=== PATIENT | female | born 1985 | race Native Hawaiian/Other Pacific Islander ===

== ENCOUNTER 2024-03-09 23:23 | Inpatient (IN) | payer OTHER, SELFPAY ==
[2024-03-09 23:43] VITALS: BP 140/120; BP 150/100; PULSE 118; PULSE 120; RESP 20; TEMP 36.9; O2SAT 97; O2SAT 99; BMI 18.6
[2024-03-09 23:48] VITALS: BP 171/118
--- NOTE | 2024-03-09 23:50 | ECG_ITS ---
Test Reason : MED CLEARANCE Blood Pressure : / mmHG Vent. Rate : 109 BPM Atrial Rate : 109 BPM P-R Int : 184 ms QRS Dur : 084 ms QT Int : 348 ms P-R-T Axes : 066 089 040 degrees QTc Int : 468 ms Sinus tachycardia Otherwise normal ECG No previous ECGs available Referred By: Zainab Salguero Electronically Signed By:JORGE JIMENEZ
--- NOTE | 2024-03-10 00:06 | ED_ITS ---
HPI - Psych General Chief Complaint: Psychiatric Symptoms Stated Complaint: ETOH, SI section 12, unknown substance per family Time Seen by Provider: 03/09/24 23:51 Source: patient and EMS Mode of arrival: EMS Limitations: other (not forthcoming with information) History of Present Illness ED Provider: LITO HPI Narrative: 39 yo female with PMH of anxiety, depression, ETOH abuse who states she has been dealing with some family issues and was doing okay she had not drank for 7 days then went home and upstairs she found a 2 bottles of alcohol just out in the open. She drank them and then did some THC gummies and cocaine. She denies any SI attempt. In the heat of the moment she made SI statements to though she will not disclose them to me. She doesn't want to go home and states she will just sleep in the bushes. She reports remote hx of SI attempts when she was much younger. She states she does not want to kill herself. She is here on S12. MD complaint: feels depressed, anxiety and alcohol abuse Onset (ago): hour(s) Duration: intermittent History of same: Yes Relieving factors: none Exacerbating factors: alcohol and other Context: recent alcohol abuse and significant life stressor Associated psychiatric symptoms: depression Associated symptoms: denies other symptoms Treatments prior to arrival: placed on mental health hold Related Data Allergies Allergy/AdvReac Type Severity Reaction Status Date / Time Unable to Assess Allergy Verified 03/09/24 23:46 Review of Systems 2 Review of Systems: Constitutional : No Fever, No Chills ENT/Mouth : No Ear Pain, No Nasal Congestion, No sore throat Eyes: No Eye Pain, No Swelling, No Redness Cardiovascular : No Chest Pain, No SOB Respiratory : No Cough, No Sputum, No Dyspnea Gastrointestinal : No Nausea, No Vomiting, No Diarrhea, No Hematochezia, No Melena Genitourinary : No Dysuria, No Urinary Frequency, No Hematuria Musculoskeletal : No Myalgias Skin : No Skin Lesions, No rash Neuro : No Weakness, No Numbness, No Paresthesias, No Dizziness, No Headache Psych : positive Anxiety, positive Depression, no SI/HI Heme/Lymph: No Lymphadenopathy Endocrine : No Polyuria, No Polydipsia All other systems reviewed and are negative [facility] Past Medical History Attestation statement: The following information was validated with the patient. Source: old records reviewed Medical History Alcohol use disorder Anxiety and depression Social History Social History Substance Use Type: Crack/Cocaine and Marijuana Do you have a plan to hurt others: No Plan Physical Exam 2 Vital Signs: Vital Signs: Last Vital Signs Temp 98.4 F 03/09/24 23:43 Pulse 118 H 03/10/24 01:00 Resp 20 03/09/24 23:43 BP 171/118 H 03/09/24 23:48 Pulse Ox 97 03/09/24 23:43 O2 Del Method Room Air 03/09/24 23:43 BMI result Body Mass Index 18.6 Appearance: Alert. Oriented X3. No acute distress. Eyes: Pupils equal, round and reactive to light. ENT: Pharynx normal. Neck: Normal inspection. Neck supple. CVS:tachycardic heart rate and rhythm. Pulses normal. Respiratory: No respiratory distress. Breath sounds normal. Abdomen: atraumatic Skin: Skin warm and dry. Normal skin color. Extremities: No lower extremity edema. Neuro: Oriented X 3. No motor deficit. No sensory deficit. CN2-12 intact Medical Decision Making Medical Decision Making MDM Narrative: 39 yo female with PMH of anxiety, depression, ETOH abuse who complains of depressoin and anxiety relapsed tonight after abstinence from ETOH - she denies SI/HI. She states she does not want to be here but is also not very forthcoming with information and states when she leaves she will sleep in some bushes. I am going to keep her here and refer her to CARE team Differential Diagnosis Differential Diagnoses: The differential diagnosis associated with the presentation includes ETOH use, depression Admission/Observation Consideration of admission/observation: Escalation of care including admission/observation considered physician observation started at 119am pending CARE team Lab Data MDM Lab Attestation statement: I reviewed the patient's lab results. 03/10/24 00:08 03/10/24 00:08 Labs: Lab Results 03/10/24 Range/Units 00:08 WBC 4.0 L (4.8-10.8) X10*3/uL RBC 3.56 L (4.20-5.50) X10*6/uL Hgb 12.8 (12.0-16.0) g/dl Hct 36.6 L (37.0-47.0) % MCV 102.8 H (80.0-98.0) fL MCH 36.0 H (27.0-33.0) pg MCHC 35.0 (31.0-35.0) g/dl RDW 11.7 (11.0-16.0) % Plt Count 309 (160-400) X10*3/uL MPV 8.5 L (9.4-12.3) fL Immature Gran % (Auto) 0.2 (0.0-0.4) % Neut % (Auto) 50.2 (45-73) % Lymph % (Auto) 35.9 (20-40) % [place] % (Auto) 9.7 (2-11) % Eos % (Auto) 3.5 (0-4) % Baso % (Auto) 0.5 (0-2) % Lymph # (Auto) 1.5 (1.2-4.9) X10*3/uL [place] # (Auto) 0.4 (0.1-1.2) X10*3/uL Eos # (Auto) 0.1 (0.0-0.4) X10*3/uL Baso # (Auto) 0.0 (0.0-0.2) X10*3/uL Abs Immat Gran (auto) 0.01 (0.00-0.03) X10*3/uL Absolute Neuts (auto) 2.0 (2.0-8.3) x10*3/uL Absolute Nucleated RBC 0.000 (0.0-0.012) X10*3/uL Nucleated RBC % (auto) 0.0 (0.0-0.2) /100WBC Sodium 145 (135-145) mmol/L Potassium 3.0 L (3.3-5.1) mmol/L Chloride 111 H (96-108) mmol/L Carbon Dioxide 27 (22-29) mmol/L Anion Gap 10 L (12-20) BUN 5 L (9-16) mg/dL Creatinine 0.77 (0.5-1.4) mg/dL Estim Creat Clear Calc 73.7 Estimated GFR > 60 Random Glucose 99 (60-115) mg/dL Calcium 9.6 (8.4-10.2) mg/dL Magnesium 2.4 (1.6-2.6) mg/dL Total Bilirubin 0.4 (0.0-1.0) mg/dL Direct Bilirubin 0.2 (0.0-0.5) mg/dL AST 74 H (5-31) U/L ALT 48 H (0-31) U/L Alkaline Phosphatase 90 (39-117) U/L Total Protein 7.0 (6.5-8.0) g/dL Albumin 4.4 (3.5-5.0) g/dL Lipase 36 (8-78) U/L Salicylates < 5.0 L (15-30) mg/dL Acetaminophen < 3 (<30) mcg/mL Ethyl Alcohol 210 mg/dL Independent Interpretation I performed an independent interpretation of an: EKG Interpretation: Rate: 109 Rhythm: sinus tachycardia [place]: normal Normal P waves. Normal ZENAIDA. Normal QRS complex. ST T wave : normal no DOROTHY qTC: 468 prior studies: no acute ischemia The study has been interpreted contemporaneously by me. . Independent Historian Clinical information obtained from an independent historian. History obtained from or confirmed by: EMS Social Determinants Patient?s care significantly limited by Social Determinants of Health including: Problems related to primary support group Discharge Plan Discharge Clinical Impression: Acute anxiety, Alcohol abuse Patient Disposition: Still a Patient Interventions: [place]-Suicide Risk Severity Scale Last Done: 03/10/24 01:00
[2024-03-10 00:15] LABS: MANUAL DIFF FLAG NO
[2024-03-10 00:17] LABS: Basophils Percent Auto 0.5 % (0-2); Eosinophils Absolute Auto 0.1 X10*3/uL (0.0-0.4); Eosinophils Percent Auto 3.5 % (0-4); Hematocrit 36.6 % (37.0-47.0); Hemoglobin 12.8 g/dl (12.0-16.0); Imm Gran Abs Auto 0.01 X10*3/uL (0.00-0.03); Imm Gran Pct Auto 0.2 % (0.0-0.4); Lymphocytes Absolute Auto 1.5 X10*3/uL (1.2-4.9); Lymphocytes Percent Auto 35.9 % (20-40); Mean Corpuscular Volume 102.8 fL (80.0-98.0); Mean Platelet Volume 8.5 fL (9.4-12.3); Monocytes Absolute Auto 0.4 X10*3/uL (0.1-1.2); Monocytes Percent Auto 9.7 % (2-11); Neutrophils Percent Auto 50.2 % (45-73); Platelet Count 309 X10*3/uL (160-400); Red Blood Count 3.56 X10*6/uL (4.20-5.50); Red Cell Distribution Width 11.7 % (11.0-16.0)
[2024-03-10 00:55] LABS: Acetaminophen LAB < 3 mcg/mL (<30); Alanine Aminotransferase 48 U/L (0-31); Albumin Level 4.4 g/dL (3.5-5.0); Alkaline Phosphatase 90 U/L (39-117); Anion Gap 10 (12-20); Aspartate Amino Transferase 74 U/L (5-31); Bilirubin Direct 0.2 mg/dL (0.0-0.5); Bilirubin Total 0.4 mg/dL (0.0-1.0); Blood Urea Nitrogen 5 mg/dL (9-16); Calcium 9.6 mg/dL (8.4-10.2); Carbon Dioxide 27 mmol/L (22-29); Chloride 111 mmol/L (96-108); Creatinine Clr Calc Pharmacy 73.7; Estimated Glomerular Filt Rate > 60; Ethanol 210 mg/dL; Glucose Random 99 mg/dL (60-115); Lipase 36 U/L (8-78); Magnesium 2.4 mg/dL (1.6-2.6); Salicylate < 5.0 mg/dL (15-30); Sodium 145 mmol/L (135-145)
[2024-03-10 01:00] VITALS: PULSE 118
--- NOTE | 2024-03-10 01:08 | PC.NURSE ---
pt comes via ems from home. Family reports pt made si statements. ETOH on board. PT refusing to answer assessment questions initially, very upset and agitated. Does not want family to visit or get any information. Later endorsed cocaine and mairjuana use. States she has been sober for 6 days after being in a program. She returned home to find her room cleaned by family, and alcohol in her room. She made statements out of anger she reports. SOLOMON 5
[2024-03-10] MEDS: LORazepam 1 MG TABLET 2 MG PO ×3 (01:18→10:15)
[2024-03-10] MEDS: Potassium Chloride Packet 20 MEQ PACKET 40 MEQ PO (01:18)
[2024-03-10 01:49] LABS: TSH reflex Free T4 1.43 uIU/mL (0.32-4.0)
[2024-03-10 06:45] VITALS: BP 119/80; PULSE 77; RESP 16; TEMP 36.7; O2SAT 100
--- NOTE | 2024-03-10 07:13 | PC.NURSE ---
Assumed care of patient at 0645. At this time the patient is resting quietly in their bed. No signs of distress observed.
[2024-03-10] MEDS: Acetaminophen 325 MG TABLET 975 MG PO (09:16)
[2024-03-10 10:03] LABS: Alanine Aminotransferase 76 U/L (0-31); Albumin Level 4.6 g/dL (3.5-5.0); Alkaline Phosphatase 103 U/L (39-117); Aspartate Amino Transferase 123 U/L (5-31); Bilirubin Total 0.3 mg/dL (0.0-1.0); Blood Urea Nitrogen 10 mg/dL (9-16); Calcium 9.7 mg/dL (8.4-10.2); Estimated Glomerular Filt Rate > 60; Glucose Random 77 mg/dL (60-115); Total Protein 7.5 g/dL (6.5-8.0)
[2024-03-10 10:20] LABS: Potassium 4.1 mmol/L (3.3-5.1)
[2024-03-10 10:21] LABS: Anion Gap 13 (12-20); Carbon Dioxide 27 mmol/L (22-29); Chloride 107 mmol/L (96-108); Sodium 143 mmol/L (135-145)
--- NOTE | 2024-03-10 10:47 | MHC.CARE ---
Pt was seen by CARE team, she is agreeable to inpatient level of care, section 12 completed and placed in chart.
--- NOTE | 2024-03-10 10:56 | PHA.MEDREC ---
Addendum entered by Elina Encinas RP 03/10/24 11:49: Reviewed by [facility] Original Note: Pharmacy Consult ? Medication Reconciliation Pharmacy has reviewed the medication reconciliation done by nursing.
[2024-03-10 12:19] LABS: UPreg QC Valid YES; Urine Pregnancy NEGATIVE (NEGATIVE)
[2024-03-10 12:20] LABS: Appearance Urine Clear; Color Urine Yellow; Glucose Urine UA Negative (Negative); Leukocyte Esterase Urine Negative (Negative); Nitrite Urine Negative (Negative); PH 6.5 (5.0-9.0); Specific Gravity - Urine <= 1.005 (1.005-1.025); Urine Blood Negative (Negative); Urine Ketones Negative (Negative); Urine Protein Negative (Neg-Trace)
[2024-03-10 12:22] LABS: Amphetamine Screen Urine Not Detected (Not Detect); Barbiturates, Urine Not Detected (Not Detect); Benzodiazepines Screen Urine Not Detected (Not Detect); Buprenorphine Scr Not Detected (Not Detect); Cannabinoid Screen Urine POSITIVE (Not Detect); Cocaine Screen Urine POSITIVE (Not Detect); Fentanyl, urine Not Detected (Not Detect); Methadone Screen, Urine Not Detected (Not Detect); Opiate Screen Urine Not Detected (Not Detect); Oxycodone Screen Urine Not Detected (Not Detect); Phencyclidine Screen Urine Not Detected (Not Detect)
[2024-03-10 15:36] VITALS: BMI 22.8
--- NOTE | 2024-03-10 15:44 | PC.NURSE ---
Pt refused flu vaccine at this time
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
--- NOTE | 2024-03-10 16:35 | PC.NURSE ---
Pt did not sign legal paperwork for family. Pt only wants visits and calls from Stanislaw Jimenez.
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
[2024-03-10 20:00] VITALS: BP 136/87; PULSE 81; RESP 16; TEMP 36.3; O2SAT 100
[2024-03-10] MEDS: hydrOXYzine HCL 25 MG TABLET PO (21:11)
[2024-03-10] MEDS: LORazepam 1 MG TABLET PO ×2 (21:11)
[2024-03-10] MEDS: QUEtiapine Fumarate 50 MG TABLET PO (21:12)
[2024-03-10] MEDS: traZODone HCL 50 MG TABLET PO (21:12)
[2024-03-11 07:41] VITALS: BP 134/84; PULSE 82; RESP 18; TEMP 36.4; O2SAT 100
[2024-03-11] MEDS: Nicotine 21 MG PATCH.TD24 TRANSDERMA (08:01)
[2024-03-11] MEDS: Folic Acid 1 MG TABLET PO (08:02)
[2024-03-11] MEDS: LORazepam 1 MG TABLET PO ×3 (08:02→20:06)
[2024-03-11] MEDS: Thiamine HCL 100 MG TABLET PO (08:03)
--- NOTE | 2024-03-11 09:02 | HO.PSYCHPN ---
Subjective Subjective Date of Service: 03/11/24 Reason For Visit: SI Subjective Notes: Conditional Voluntary Interim History: Reviewed with Dr. Atkins. Keeping to self. In bed most of shift. Guarded. Continued on CIWA. Patient reports feeling depressed; she reports suicidal ideation with no plan. Patient stated, everything in my life is changing. I have a problem that everyone is now aware of and now I am here . Patient reports she is having an affair but no one knows; patient stated, I am sure my and I are going to go through a divorce at some point . Patient denies HI/VH/AH. Start: Vraylar 3mg PO daily Medication Compliance: Yes Side effects from medications: No Attending Groups: No Review of Systems Constitutional: Reports as per HPI Eyes: Reports as per HPI Reports as per HPI Cardiovascular: Reports as per HPI Respiratory: Reports as per HPI Gastrointestinal: Reports as per HPI Musculoskeletal: Reports as per HPI Skin/Breast: Reports as per HPI Reports as per HPI Psychiatric: Reports as per HPI Endocrine: Reports as per HPI Hematologic/Lymphatic: Reports as per HPI Allergic/Immunologic: Reports as per HPI Mental Status Exam Mental Status Exam Narrative: Pt is alert and oriented; behavior is cooperative and calm; dressed in hospital attire; mood is described as depressed ; eye contact appropriate; Speech is normal rate, volume and not pressured; circumstantial, some paranoia; denies HI/VH/AH. pt reports suicidal ideation with no plan. Diagnostics Vital Signs (24Hr): Vital Signs - 24 hr 03/10/24 20:00 03/11/24 07:41 Temperature 97.3 F 97.6 F Pulse Rate 81 82 Respiratory Rate 16 18 Blood Pressure 136/87 134/84 Pulse Oximetry 100 100 Oxygen Delivery Method Room Air Room Air BMI result Body Mass Index 22.8 Labs 03/11/24 09:09 03/11/24 09:09 Labs: Laboratory Results - last 48 hr 03/10/24 03/10/24 03/10/24 00:08 09:40 12:03 WBC 4.0 L RBC 3.56 L Hgb 12.8 Hct 36.6 L MCV 102.8 H MCH 36.0 H MCHC 35.0 RDW 11.7 Plt Count 309 MPV 8.5 L Immature Gran % (Auto) 0.2 Neut % (Auto) 50.2 Lymph % (Auto) 35.9 [place] % (Auto) 9.7 Eos % (Auto) 3.5 Baso % (Auto) 0.5 Lymph # (Auto) 1.5 [place] # (Auto) 0.4 Eos # (Auto) 0.1 Baso # (Auto) 0.0 Abs Immat Gran (auto) 0.01 Absolute Neuts (auto) 2.0 Absolute Nucleated RBC 0.000 Nucleated RBC % (auto) 0.0 Sodium 145 143 Potassium 3.0 L 4.1 D Chloride 111 H 107 Carbon Dioxide 27 27 Anion Gap 10 L 13 BUN 5 L 10 Creatinine 0.77 0.86 Estim Creat Clear Calc 73.7 66.0 Estimated GFR > 60 > 60 Random Glucose 99 77 Calcium 9.6 9.7 Magnesium 2.4 Total Bilirubin 0.4 0.3 Direct Bilirubin 0.2 AST 74 H 123 H ALT 48 H 76 H Alkaline Phosphatase 90 103 Total Protein 7.0 7.5 Albumin 4.4 4.6 Lipase 36 TSH 1.43 Urine Color Urine Appearance Urine pH Ur Specific [place] Urine Protein Urine Glucose (UA) Urine Ketones Urine Blood Urine Nitrite Ur Leukocyte Esterase Urine Test NEGATIVE Salicylates < 5.0 L Urine Opiates Screen Not Detected Ur Buprenorphine Scrn Not Detected Ur Oxycodone Screen Not Detected Urine Methadone Screen Not Detected Urine Fentanyl Screen Not Detected Acetaminophen < 3 Ur Barbiturates Screen Not Detected Ur Phencyclidine Scrn Not Detected Ur Amphetamines Screen Not Detected U Benzodiazepines Scrn Not Detected Urine Cocaine Screen POSITIVE H U Marijuana (THC) Screen POSITIVE H Ethyl Alcohol 210 03/10/24 12:08 WBC RBC Hgb Hct MCV MCH MCHC RDW Plt Count MPV Immature Gran % (Auto) Neut % (Auto) Lymph % (Auto) [place] % (Auto) Eos % (Auto) Baso % (Auto) Lymph # (Auto) [place] # (Auto) Eos # (Auto) Baso # (Auto) Abs Immat Gran (auto) Absolute Neuts (auto) Absolute Nucleated RBC Nucleated RBC % (auto) Sodium Potassium Chloride Carbon Dioxide Anion Gap BUN Creatinine Estim Creat Clear Calc Estimated GFR Random Glucose Calcium Magnesium Total Bilirubin Direct Bilirubin AST ALT Alkaline Phosphatase Total Protein Albumin Lipase TSH Urine Color Yellow Urine Appearance Clear Urine pH 6.5 Ur Specific [place] <= 1.005 Urine Protein Negative Urine Glucose (UA) Negative Urine Ketones Negative Urine Blood Negative Urine Nitrite Negative Ur Leukocyte Esterase Negative Urine Test Salicylates Urine Opiates Screen Ur Buprenorphine Scrn Ur Oxycodone Screen Urine Methadone Screen Urine Fentanyl Screen Acetaminophen Ur Barbiturates Screen Ur Phencyclidine Scrn Ur Amphetamines Screen U Benzodiazepines Scrn Urine Cocaine Screen U Marijuana (THC) Screen Ethyl Alcohol Medications Medications Current Medications Acetaminophen (Acetaminophen 325 Mg Tablet) 650 mg PO Q6H PRN PRN Reason: Headache/Pain Mild Scale (1-3) Al Hydroxide/Mg Hydroxide (Magnesium Hydrox/Alum Hydrox 30 Ml Oral.Susp) 30 ml PO Q6H PRN PRN Reason: Heartburn/Nausea Folic Acid (Folic Acid 1 Mg Tablet) 1 mg PO DAILY [facility] Last Admin: 03/11/24 08:02 Dose: 1 mg Hydroxyzine HCl (Hydroxyzine Hcl 25 Mg Tablet) 25 mg PO Q6H PRN PRN Reason: Anxiety Last Admin: 03/10/24 21:11 Dose: 25 mg Lorazepam (Lorazepam 1 Mg Tablet) 1 mg PO Q4H PRN PRN Reason: CIWA 6-12 Last Admin: 03/10/24 21:11 Dose: 1 mg Lorazepam (Lorazepam 1 Mg Tablet) 2 mg PO Q4H PRN PRN Reason: CIWA 13 and above Lorazepam (Lorazepam 1 Mg Tablet) 1 mg PO TID [facility] Last Admin: 03/11/24 08:02 Dose: 1 mg Magnesium Hydroxide (Milk Of Magnesia 30 Ml Oral.Susp) 30 ml PO DAILY PRN PRN Reason: Constipation Nicotine (Nicotine 21 Mg Patch.Td24) 21 mg TRANSDERMA DAILY [facility] Last Admin: 03/11/24 08:01 Dose: 21 mg Nicotine Polacrilex (Nicotine Polacrilex 2 Mg Gum) 4 mg BUCCAL Q2H PRN PRN Reason: Nicotine Cravings Quetiapine Fumarate (Quetiapine Fumarate 50 Mg Tablet) 50 mg PO BEDTIME [facility] Last Admin: 03/10/24 21:12 Dose: 50 mg Quetiapine Fumarate (Quetiapine Fumarate 25 Mg Tablet) 25 mg PO DAILY PRN PRN Reason: Anxiety Thiamine HCl (Thiamine Hcl 100 Mg Tablet) 100 mg PO DAILY [facility] Last Admin: 03/11/24 08:03 Dose: 100 mg Trazodone HCl (Trazodone Hcl 50 Mg Tablet) 50 mg PO BEDTIME MRX1 PRN PRN Reason: Insomnia Last Admin: 03/10/24 21:12 Dose: 50 mg Allergies Allergies Allergy/AdvReac Type Severity Reaction Status Date / Time Unable to Assess Allergy Verified 03/09/24 23:46 Assessment & Plan Assessment & Plan (1) MDD (major depressive disorder), recurrent episode: Status: Acute Code(s): F33.9 - Major depressive disorder, recurrent, unspecified (2) PTSD (post-traumatic stress disorder): Status: Acute Code(s): F43.10 - Post-traumatic stress disorder, unspecified (3) Alcohol use disorder: Status: Acute Code(s): F10.90 - Alcohol use, unspecified, uncomplicated (4) Cocaine use disorder: Status: Acute Code(s): F14.10 - Cocaine abuse, uncomplicated Plan Patient is a 39-year-old female with history of MDD, PTSD, alcohol use disorder and cocaine use disorder who presented [place] [facility] [place] due to making suicidal statements while intoxicated and under the influence of substances secondary to increased life stressors. Plan: CV 15 minute safety checks CIWA Start: Ativan 1mg PO TID Seroquel 50mg PO bedtime Seroquel 25mg PO PRN Folic acid 1mg PO daily Thiamine 100mg PO daily re-draw Labs for tomorrow Obtain collateral Referral to outpatient psychiatric providers. Discharge planning 03/11: Keeping to self. In bed most of shift. Guarded. Continued on CIWA. Patient reports feeling depressed; she reports suicidal ideation with no plan. Patient stated, everything in my life is changing. I have a problem that everyone is now aware of and now I am here . Patient reports she is having an affair but no one knows; patient stated, I am sure my and I are going to go through a divorce at some point . Patient denies HI/VH/AH. Start: Vraylar 3mg PO daily Patient educated on: diagnosis, medication risk/benefits, substance abuse and therapeutic strategies Reason for continued inpatient stay Substantial Risk for: harm to self and med/psych decompensation Time Spent With Patient Time: Total time managing care of this patient today _20___ minutes.
[2024-03-11 09:24] LABS: MANUAL DIFF FLAG NO
[2024-03-11 09:25] LABS: Basophils Percent Auto 0.5 % (0-2); Eosinophils Absolute Auto 0.1 X10*3/uL (0.0-0.4); Hematocrit 39.3 % (37.0-47.0); Hemoglobin 13.6 g/dl (12.0-16.0); Lymphocytes Absolute Auto 1.2 X10*3/uL (1.2-4.9); Lymphocytes Percent Auto 29.4 % (20-40); Mean Corpuscular HGB Conc 34.6 g/dl (31.0-35.0); Mean Corpuscular Hemoglobin 36.4 pg (27.0-33.0); Mean Corpuscular Volume 105.1 fL (80.0-98.0); Mean Platelet Volume 8.9 fL (9.4-12.3); Monocytes Absolute Auto 0.3 X10*3/uL (0.1-1.2); Monocytes Percent Auto 8.6 % (2-11); Neutrophils Absolute Auto 2.3 x10*3/uL (2.0-8.3); Neutrophils Percent Auto 58.5 % (45-73); Platelet Count 322 X10*3/uL (160-400); Red Blood Count 3.74 X10*6/uL (4.20-5.50); Red Cell Distribution Width 11.9 % (11.0-16.0)
--- NOTE | 2024-03-11 09:30 | MHC.CLN ---
NUTRITION CONSULT FOR PATIENT REPORTED 40# WEIGHT LOSS X ONE MONTH. PATIENT WITH DX ETOH AND COCAINE ABUSE. ADMISSION LABS REFLECT SAME. PATIENT REPORTED TO NURSING THAT HAS LOST 40# X ONE MONTH. REVIEW OF WEIGHT HX SHOWS WEIGHT DISCREPANCY 03/10/24=47.6 KG, 03/11/24=58.3 KG. NO ADDITIONAL NUTRITION INTERVENTIONS AT THIS TIME. PLEASE CONSULT RD IF PATIENT WITH POOR PO X 3 DAYS.
[2024-03-11 09:42] LABS: Alanine Aminotransferase 59 U/L (0-31); Albumin Level 4.5 g/dL (3.5-5.0); Alkaline Phosphatase 99 U/L (39-117); Anion Gap 13 (12-20); Aspartate Amino Transferase 74 U/L (5-31); Bilirubin Total 0.4 mg/dL (0.0-1.0); Blood Urea Nitrogen 9 mg/dL (9-16); Calcium 9.8 mg/dL (8.4-10.2); Carbon Dioxide 25 mmol/L (22-29); Chloride 105 mmol/L (96-108); Cholesterol 200 mg/dL (<200); Creatinine Clr Calc Pharmacy 71.7; Estimated Glomerular Filt Rate > 60; Glucose Fasting 97 mg/dL (60-99); HDL Cholesterol 82 mg/dL (>40); LDL Cholesterol Calculated 85 mg/dL (<100); Potassium 3.8 mmol/L (3.3-5.1); Sodium 139 mmol/L (135-145); Total Protein 7.3 g/dL (6.5-8.0); Triglycerides 165 mg/dL (<150)
[2024-03-11 09:50] LABS: Alanine Aminotransferase 57 U/L (0-31); Albumin Level 4.5 g/dL (3.5-5.0); Alkaline Phosphatase 99 U/L (39-117); Anion Gap 13 (12-20); Aspartate Amino Transferase 72 U/L (5-31); Bilirubin Direct 0.2 mg/dL (0.0-0.5); Bilirubin Total 0.4 mg/dL (0.0-1.0); Blood Urea Nitrogen 10 mg/dL (9-16); Calcium 9.7 mg/dL (8.4-10.2); Carbon Dioxide 26 mmol/L (22-29); Chloride 104 mmol/L (96-108); Creatinine Clr Calc Pharmacy 72.6; Estimated Glomerular Filt Rate > 60; Glucose Random 96 mg/dL (60-115); Potassium 3.8 mmol/L (3.3-5.1); Sodium 139 mmol/L (135-145); Total Protein 7.3 g/dL (6.5-8.0)
[2024-03-11 10:06] LABS: TSH reflex Free T4 1.24 uIU/mL (0.32-4.0)
[2024-03-11 10:08] LABS: HBS Num1 604.62 mIU/mL (0-7.99); HBc Num1 0.12 S/CO (0.00-0.79); Hepatitis A Antibody IgM 0.21 Index (0-0.79); Hepatitis B Core Antibody Nonreactive (Nonreactive); Hepatitis B Surface Antigen Negative (Negative); ~Hepatitis A Antibody IgM Nonreactive (Nonreactive); ~Hepatitis B Surface Antibody REACTIVE (Nonreactive); ~Hepatitis C Antibody Nonreactive (Nonreactive)
[2024-03-11 10:23] LABS: Folate > 20.0 ng/mL (> or = 4.0); Vitamin B12 521 pg/mL (200-900)
[2024-03-11 11:22] LABS: Ammonia 24 umol/L (13-55)
[2024-03-11] MEDS: Cariprazine HCl 3 MG CAPSULE PO (15:08)
[2024-03-11 20:00] VITALS: BP 132/81; PULSE 81; TEMP 36.9; O2SAT 99
[2024-03-11] MEDS: QUEtiapine Fumarate 50 MG TABLET PO (20:06)
[2024-03-12 07:42] VITALS: BP 141/74; PULSE 79; RESP 16; TEMP 36.2; O2SAT 100
[2024-03-12] MEDS: Thiamine HCL 100 MG TABLET PO (08:41)
[2024-03-12] MEDS: Cariprazine HCl 3 MG CAPSULE PO (08:41)
[2024-03-12] MEDS: Folic Acid 1 MG TABLET PO (08:41)
[2024-03-12] MEDS: Nicotine 21 MG PATCH.TD24 TRANSDERMA (08:41)
[2024-03-12] MEDS: LORazepam 1 MG TABLET PO ×4 (08:41→20:13)
[2024-03-12] MEDS: Acetaminophen 325 MG TABLET 650 MG PO ×2 (09:00→16:37)
--- NOTE | 2024-03-12 09:17 | HO.PSYCHPN ---
Subjective Subjective Date of Service: 03/12/24 Reason For Visit: SI Subjective Notes: Conditional Voluntary Interim History: Reviewed with Dr. Atkins. Active on unit but keeping to self. Attending groups. Patient presents less guarded and more organized today. She continues to report increased depression. Patient future oriented, discussed ideas of how to improve her life. Patient stated, I want to find a job that makes me happy and that helps people or animals. I want to move out of [place] and be closer with my siblings . Patient expressed interest in talking to addiction medicine regarding a resource recovery specialist and possible treatment options for her alcohol use. Patient continues concern regarding anyone finding out about her marital affair. Patient denies any side effects from starting Vraylar. Scheduled Ativan decreased to 0.5mg at 0800,1500. And 1mg at bedtime. Continue CIWA. Medication Compliance: Yes Side effects from medications: No Attending Groups: Yes Review of Systems Constitutional: Reports as per HPI Eyes: Reports as per HPI Reports as per HPI Cardiovascular: Reports as per HPI Respiratory: Reports as per HPI Gastrointestinal: Reports as per HPI Musculoskeletal: Reports as per HPI Skin/Breast: Reports as per HPI Reports as per HPI Psychiatric: Reports as per HPI Endocrine: Reports as per HPI Hematologic/Lymphatic: Reports as per HPI Allergic/Immunologic: Reports as per HPI Mental Status Exam Mental Status Exam Narrative: Pt is alert and oriented; behavior is cooperative and calm; dressed in hospital attire; mood is described as depressed ; eye contact appropriate; Speech is normal rate, volume and not pressured; organized, future oriented; denies HI/VH/AH. pt reports passive suicidal ideation with no plan. Diagnostics Vital Signs (24Hr): Vital Signs - 24 hr 03/11/24 20:00 03/12/24 07:42 Temperature 98.5 F 97.2 F Pulse Rate 81 79 Respiratory Rate 16 Blood Pressure 132/81 141/74 H Pulse Oximetry 99 100 Oxygen Delivery Method Room Air Room Air BMI result Body Mass Index 22.8 Labs 03/11/24 09:09 03/11/24 09:09 Labs: Laboratory Results - last 48 hr 03/10/24 03/10/24 03/10/24 09:40 12:03 12:08 WBC RBC Hgb Hct MCV MCH MCHC RDW Plt Count MPV Immature Gran % (Auto) Neut % (Auto) Lymph % (Auto) [place] % (Auto) Eos % (Auto) Baso % (Auto) Lymph # (Auto) [place] # (Auto) Eos # (Auto) Baso # (Auto) Abs Immat Gran (auto) Absolute Neuts (auto) Absolute Nucleated RBC Nucleated RBC % (auto) Sodium 143 Potassium 4.1 D Chloride 107 Carbon Dioxide 27 Anion Gap 13 BUN 10 Creatinine 0.86 Estim Creat Clear Calc 66.0 Estimated GFR > 60 Random Glucose 77 Fasting Glucose Calcium 9.7 Total Bilirubin 0.3 Direct Bilirubin AST 123 H ALT 76 H Alkaline Phosphatase 103 Ammonia Total Protein 7.5 Albumin 4.6 Triglycerides Cholesterol LDL Cholesterol, Calc HDL Cholesterol Vitamin B12 Folate TSH Urine Color Yellow Urine Appearance Clear Urine pH 6.5 Ur Specific [place] <= 1.005 Urine Protein Negative Urine Glucose (UA) Negative Urine Ketones Negative Urine Blood Negative Urine Nitrite Negative Ur Leukocyte Esterase Negative Urine Test NEGATIVE Urine Opiates Screen Not Detected Ur Buprenorphine Scrn Not Detected Ur Oxycodone Screen Not Detected Urine Methadone Screen Not Detected Urine Fentanyl Screen Not Detected Ur Barbiturates Screen Not Detected Ur Phencyclidine Scrn Not Detected Ur Amphetamines Screen Not Detected U Benzodiazepines Scrn Not Detected Urine Cocaine Screen POSITIVE H U Marijuana (THC) Screen POSITIVE H Hepatitis A IgM Ab Hep Bs Antigen Hep Bs Antibody Hep B Core Total Ab Hepatitis C Ab (EIA) 03/11/24 03/11/24 03/11/24 09:08 09:09 09:09 WBC 4.0 L RBC 3.74 L Hgb 13.6 Hct 39.3 MCV 105.1 H MCH 36.4 H MCHC 34.6 RDW 11.9 Plt Count 322 MPV 8.9 L Immature Gran % (Auto) 0.0 Neut % (Auto) 58.5 Lymph % (Auto) 29.4 [place] % (Auto) 8.6 Eos % (Auto) 3.0 Baso % (Auto) 0.5 Lymph # (Auto) 1.2 [place] # (Auto) 0.3 Eos # (Auto) 0.1 Baso # (Auto) 0.0 Abs Immat Gran (auto) 0.00 Absolute Neuts (auto) 2.3 Absolute Nucleated RBC 0.000 Nucleated RBC % (auto) 0.0 Sodium 139 139 Potassium 3.8 Chloride Carbon Dioxide Anion Gap BUN Creatinine Estim Creat Clear Calc Estimated GFR Random Glucose Fasting Glucose Calcium Total Bilirubin Direct Bilirubin AST ALT Alkaline Phosphatase Ammonia Total Protein Albumin Triglycerides Cholesterol LDL Cholesterol, Calc HDL Cholesterol Vitamin B12 521 Folate > 20.0 TSH Urine Color Urine Appearance Urine pH Ur Specific [place] Urine Protein Urine Glucose (UA) Urine Ketones Urine Blood Urine Nitrite Ur Leukocyte Esterase Urine Test Urine Opiates Screen Ur Buprenorphine Scrn Ur Oxycodone Screen Urine Methadone Screen Urine Fentanyl Screen Ur Barbiturates Screen Ur Phencyclidine Scrn Ur Amphetamines Screen U Benzodiazepines Scrn Urine Cocaine Screen U Marijuana (THC) Screen Hepatitis A IgM Ab Nonreactive Hep Bs Antigen Negative Hep Bs Antibody REACTIVE Hep B Core Total Ab Nonreactive Hepatitis C Ab (EIA) Nonreactive 03/11/24 03/11/24 03/11/24 09:09 09:09 09:09 WBC RBC Hgb Hct MCV MCH MCHC RDW Plt Count MPV Immature Gran % (Auto) Neut % (Auto) Lymph % (Auto) [place] % (Auto) Eos % (Auto) Baso % (Auto) Lymph # (Auto) [place] # (Auto) Eos # (Auto) Baso # (Auto) Abs Immat Gran (auto) Absolute Neuts (auto) Absolute Nucleated RBC Nucleated RBC % (auto) Sodium Potassium 3.8 Chloride 105 104 Carbon Dioxide 25 26 Anion Gap 13 BUN Creatinine Estim Creat Clear Calc Estimated GFR Random Glucose Fasting Glucose Calcium Total Bilirubin Direct Bilirubin AST ALT Alkaline Phosphatase Ammonia Total Protein Albumin Triglycerides Cholesterol LDL Cholesterol, Calc HDL Cholesterol Vitamin B12 Folate TSH Urine Color Urine Appearance Urine pH Ur Specific [place] Urine Protein Urine Glucose (UA) Urine Ketones Urine Blood Urine Nitrite Ur Leukocyte Esterase Urine Test Urine Opiates Screen Ur Buprenorphine Scrn Ur Oxycodone Screen Urine Methadone Screen Urine Fentanyl Screen Ur Barbiturates Screen Ur Phencyclidine Scrn Ur Amphetamines Screen U Benzodiazepines Scrn Urine Cocaine Screen U Marijuana (THC) Screen Hepatitis A IgM Ab Hep Bs Antigen Hep Bs Antibody Hep B Core Total Ab Hepatitis C Ab (EIA) 03/11/24 03/11/24 03/11/24 09:09 09:09 09:09 WBC RBC Hgb Hct MCV MCH MCHC RDW Plt Count MPV Immature Gran % (Auto) Neut % (Auto) Lymph % (Auto) [place] % (Auto) Eos % (Auto) Baso % (Auto) Lymph # (Auto) [place] # (Auto) Eos # (Auto) Baso # (Auto) Abs Immat Gran (auto) Absolute Neuts (auto) Absolute Nucleated RBC Nucleated RBC % (auto) Sodium Potassium Chloride Carbon Dioxide Anion Gap 13 BUN 9 10 Creatinine 0.87 0.86 Estim Creat Clear Calc 71.7 Estimated GFR Random Glucose Fasting Glucose Calcium Total Bilirubin Direct Bilirubin AST ALT Alkaline Phosphatase Ammonia Total Protein Albumin Triglycerides Cholesterol LDL Cholesterol, Calc HDL Cholesterol Vitamin B12 Folate TSH Urine Color Urine Appearance Urine pH Ur Specific [place] Urine Protein Urine Glucose (UA) Urine Ketones Urine Blood Urine Nitrite Ur Leukocyte Esterase Urine Test Urine Opiates Screen Ur Buprenorphine Scrn Ur Oxycodone Screen Urine Methadone Screen Urine Fentanyl Screen Ur Barbiturates Screen Ur Phencyclidine Scrn Ur Amphetamines Screen U Benzodiazepines Scrn Urine Cocaine Screen U Marijuana (THC) Screen Hepatitis A IgM Ab Hep Bs Antigen Hep Bs Antibody Hep B Core Total Ab Hepatitis C Ab (EIA) 03/11/24 03/11/24 03/11/24 09:09 09:09 09:09 WBC RBC Hgb Hct MCV MCH MCHC RDW Plt Count MPV Immature Gran % (Auto) Neut % (Auto) Lymph % (Auto) [place] % (Auto) Eos % (Auto) Baso % (Auto) Lymph # (Auto) [place] # (Auto) Eos # (Auto) Baso # (Auto) Abs Immat Gran (auto) Absolute Neuts (auto) Absolute Nucleated RBC Nucleated RBC % (auto) Sodium Potassium Chloride Carbon Dioxide Anion Gap BUN Creatinine Estim Creat Clear Calc 72.6 Estimated GFR > 60 > 60 Random Glucose 96 Fasting Glucose 97 Calcium 9.8 9.7 Total Bilirubin 0.4 Direct Bilirubin AST ALT Alkaline Phosphatase Ammonia Total Protein Albumin Triglycerides Cholesterol LDL Cholesterol, Calc HDL Cholesterol Vitamin B12 Folate TSH Urine Color Urine Appearance Urine pH Ur Specific [place] Urine Protein Urine Glucose (UA) Urine Ketones Urine Blood Urine Nitrite Ur Leukocyte Esterase Urine Test Urine Opiates Screen Ur Buprenorphine Scrn Ur Oxycodone Screen Urine Methadone Screen Urine Fentanyl Screen Ur Barbiturates Screen Ur Phencyclidine Scrn Ur Amphetamines Screen U Benzodiazepines Scrn Urine Cocaine Screen U Marijuana (THC) Screen Hepatitis A IgM Ab Hep Bs Antigen Hep Bs Antibody Hep B Core Total Ab Hepatitis C Ab (EIA) 03/11/24 03/11/24 03/11/24 09:09 09:09 09:09 WBC RBC Hgb Hct MCV MCH MCHC RDW Plt Count MPV Immature Gran % (Auto) Neut % (Auto) Lymph % (Auto) [place] % (Auto) Eos % (Auto) Baso % (Auto) Lymph # (Auto) [place] # (Auto) Eos # (Auto) Baso # (Auto) Abs Immat Gran (auto) Absolute Neuts (auto) Absolute Nucleated RBC Nucleated RBC % (auto) Sodium Potassium Chloride Carbon Dioxide Anion Gap BUN Creatinine Estim Creat Clear Calc Estimated GFR Random Glucose Fasting Glucose Calcium Total Bilirubin 0.4 Direct Bilirubin 0.2 AST 74 H 72 H ALT 59 H 57 H Alkaline Phosphatase 99 Ammonia Total Protein Albumin Triglycerides Cholesterol LDL Cholesterol, Calc HDL Cholesterol Vitamin B12 Folate TSH Urine Color Urine Appearance Urine pH Ur Specific [place] Urine Protein Urine Glucose (UA) Urine Ketones Urine Blood Urine Nitrite Ur Leukocyte Esterase Urine Test Urine Opiates Screen Ur Buprenorphine Scrn Ur Oxycodone Screen Urine Methadone Screen Urine Fentanyl Screen Ur Barbiturates Screen Ur Phencyclidine Scrn Ur Amphetamines Screen U Benzodiazepines Scrn Urine Cocaine Screen U Marijuana (THC) Screen Hepatitis A IgM Ab Hep Bs Antigen Hep Bs Antibody Hep B Core Total Ab Hepatitis C Ab (EIA) 03/11/24 03/11/24 03/11/24 09:09 09:09 09:09 WBC RBC Hgb Hct MCV MCH MCHC RDW Plt Count MPV Immature Gran % (Auto) Neut % (Auto) Lymph % (Auto) [place] % (Auto) Eos % (Auto) Baso % (Auto) Lymph # (Auto) [place] # (Auto) Eos # (Auto) Baso # (Auto) Abs Immat Gran (auto) Absolute Neuts (auto) Absolute Nucleated RBC Nucleated RBC % (auto) Sodium Potassium Chloride Carbon Dioxide Anion Gap BUN Creatinine Estim Creat Clear Calc Estimated GFR Random Glucose Fasting Glucose Calcium Total Bilirubin Direct Bilirubin AST ALT Alkaline Phosphatase 99 Ammonia Total Protein 7.3 7.3 Albumin 4.5 4.5 Triglycerides 165 H Cholesterol 200 H LDL Cholesterol, Calc 85 HDL Cholesterol 82 Vitamin B12 Folate TSH 1.24 Urine Color Urine Appearance Urine pH Ur Specific [place] Urine Protein Urine Glucose (UA) Urine Ketones Urine Blood Urine Nitrite Ur Leukocyte Esterase Urine Test Urine Opiates Screen Ur Buprenorphine Scrn Ur Oxycodone Screen Urine Methadone Screen Urine Fentanyl Screen Ur Barbiturates Screen Ur Phencyclidine Scrn Ur Amphetamines Screen U Benzodiazepines Scrn Urine Cocaine Screen U Marijuana (THC) Screen Hepatitis A IgM Ab Hep Bs Antigen Hep Bs Antibody Hep B Core Total Ab Hepatitis C Ab (EIA) 03/11/24 10:46 WBC RBC Hgb Hct MCV MCH MCHC RDW Plt Count MPV Immature Gran % (Auto) Neut % (Auto) Lymph % (Auto) [place] % (Auto) Eos % (Auto) Baso % (Auto) Lymph # (Auto) [place] # (Auto) Eos # (Auto) Baso # (Auto) Abs Immat Gran (auto) Absolute Neuts (auto) Absolute Nucleated RBC Nucleated RBC % (auto) Sodium Potassium Chloride Carbon Dioxide Anion Gap BUN Creatinine Estim Creat Clear Calc Estimated GFR Random Glucose Fasting Glucose Calcium Total Bilirubin Direct Bilirubin AST ALT Alkaline Phosphatase Ammonia 24 Total Protein Albumin Triglycerides Cholesterol LDL Cholesterol, Calc HDL Cholesterol Vitamin B12 Folate TSH Urine Color Urine Appearance Urine pH Ur Specific [place] Urine Protein Urine Glucose (UA) Urine Ketones Urine Blood Urine Nitrite Ur Leukocyte Esterase Urine Test Urine Opiates Screen Ur Buprenorphine Scrn Ur Oxycodone Screen Urine Methadone Screen Urine Fentanyl Screen Ur Barbiturates Screen Ur Phencyclidine Scrn Ur Amphetamines Screen U Benzodiazepines Scrn Urine Cocaine Screen U Marijuana (THC) Screen Hepatitis A IgM Ab Hep Bs Antigen Hep Bs Antibody Hep B Core Total Ab Hepatitis C Ab (EIA) Medications Medications Current Medications Acetaminophen (Acetaminophen 325 Mg Tablet) 650 mg PO Q6H PRN PRN Reason: Headache/Pain Mild Scale (1-3) Last Admin: 03/12/24 09:00 Dose: 650 mg Al Hydroxide/Mg Hydroxide (Magnesium Hydrox/Alum Hydrox 30 Ml Oral.Susp) 30 ml PO Q6H PRN PRN Reason: Heartburn/Nausea Cariprazine (Cariprazine Hcl 3 Mg Capsule) 3 mg PO DAILY [facility] Last Admin: 03/12/24 08:41 Dose: 3 mg Folic Acid (Folic Acid 1 Mg Tablet) 1 mg PO DAILY [facility] Last Admin: 03/12/24 08:41 Dose: 1 mg Hydroxyzine HCl (Hydroxyzine Hcl 25 Mg Tablet) 25 mg PO Q6H PRN PRN Reason: Anxiety Last Admin: 03/10/24 21:11 Dose: 25 mg Lorazepam (Lorazepam 1 Mg Tablet) 1 mg PO Q4H PRN PRN Reason: CIWA 6-12 Last Admin: 03/12/24 09:00 Dose: 1 mg Lorazepam (Lorazepam 1 Mg Tablet) 2 mg PO Q4H PRN PRN Reason: CIWA 13 and above Lorazepam (Lorazepam 1 Mg Tablet) 1 mg PO TID [facility] Last Admin: 03/12/24 08:41 Dose: 1 mg Magnesium Hydroxide (Milk Of Magnesia 30 Ml Oral.Susp) 30 ml PO DAILY PRN PRN Reason: Constipation Nicotine (Nicotine 21 Mg Patch.Td24) 21 mg TRANSDERMA DAILY [facility] Last Admin: 03/12/24 08:41 Dose: 21 mg Nicotine Polacrilex (Nicotine Polacrilex 2 Mg Gum) 4 mg BUCCAL Q2H PRN PRN Reason: Nicotine Cravings Ondansetron HCl (Ondansetron Odt 8 Mg Tab.Rapdis) 8 mg TRANSLINGU Q8H PRN PRN Reason: Nausea and Vomiting Quetiapine Fumarate (Quetiapine Fumarate 50 Mg Tablet) 50 mg PO BEDTIME [facility] Last Admin: 03/11/24 20:06 Dose: 50 mg Quetiapine Fumarate (Quetiapine Fumarate 25 Mg Tablet) 25 mg PO DAILY PRN PRN Reason: Anxiety Thiamine HCl (Thiamine Hcl 100 Mg Tablet) 100 mg PO DAILY [facility] Last Admin: 03/12/24 08:41 Dose: 100 mg Trazodone HCl (Trazodone Hcl 50 Mg Tablet) 50 mg PO BEDTIME MRX1 PRN PRN Reason: Insomnia Last Admin: 03/10/24 21:12 Dose: 50 mg Allergies Allergies Allergy/AdvReac Type Severity Reaction Status Date / Time Unable to Assess Allergy Verified 03/09/24 23:46 Assessment & Plan Assessment & Plan (1) MDD (major depressive disorder), recurrent episode: Status: Acute Code(s): F33.9 - Major depressive disorder, recurrent, unspecified (2) PTSD (post-traumatic stress disorder): Status: Acute Code(s): F43.10 - Post-traumatic stress disorder, unspecified (3) Alcohol use disorder: Status: Acute Code(s): F10.90 - Alcohol use, unspecified, uncomplicated (4) Cocaine use disorder: Status: Acute Code(s): F14.10 - Cocaine abuse, uncomplicated Plan Patient is a 39-year-old female with history of MDD, PTSD, alcohol use disorder and cocaine use disorder who presented to [facility] via ambulance due to making suicidal statements while intoxicated and under the influence of substances secondary to increased life stressors. Plan: CV 15 minute safety checks CIWA Start: Ativan 1mg PO TID Seroquel 50mg PO bedtime Seroquel 25mg PO PRN Folic acid 1mg PO daily Thiamine 100mg PO daily re-draw Labs for tomorrow Obtain collateral Referral to outpatient psychiatric providers. Discharge planning 03/11: Keeping to self. In bed most of shift. Guarded. Continued on CIWA. Patient reports feeling depressed; she reports suicidal ideation with no plan. Patient stated, everything in my life is changing. I have a problem that everyone is now aware of and now I am here . Patient reports she is having an affair but no one knows; patient stated, I am sure my and I are going to go through a divorce at some point . Patient denies HI/VH/AH. Start: Vraylar 3mg PO daily 03/12: Active on unit but keeping to self. Attending groups. Patient presents less guarded and more organized today. She continues to report increased depression. Patient future oriented, discussed ideas of how to improve her life. Patient stated, I want to find a job that makes me happy and that helps people or animals. I want to move out of [place] and be closer with my siblings . Patient expressed interest in talking to addiction medicine regarding a resource recovery specialist and possible treatment options for her alcohol use. Patient continues concern regarding anyone finding out about her marital affair. Patient denies any side effects from starting Vraylar. Scheduled Ativan decreased to 0.5mg at 0800,1500. And 1mg at bedtime. Continue CIWA. Addiction medicine consult placed. Patient educated on: diagnosis, medication risk/benefits, substance abuse and therapeutic strategies Informed Consent: understands Reason for continued inpatient stay Substantial Risk for: harm to self and med/psych decompensation Time Spent With Patient Time: Total time managing care of this patient today _30___ minutes.
[2024-03-12 09:27] VITALS: BMI 22.9
[2024-03-12] MEDS: LORazepam 0.5 MG TABLET PO (15:40)
[2024-03-12] MEDS: Ondansetron ODT 8 MG TAB.RAPDIS TRANSLINGU (17:52)
--- NOTE | 2024-03-12 18:09 | MHC.RECOVSUP ---
? Reason for consult Recovery Support o Current location: 322-2 o Identified substance use concern: Alcohol/Cocaine - Support ? Intervention: o Community resources provided o Harm reduction discussion ? Plan: o Patient to follow up with [facility] after discharge ? Additional information: Met with patient and we talked about recovery and the different pathways. We also talked about harm reduction and triggers.
[2024-03-12 20:00] VITALS: BP 135/86; PULSE 81; RESP 14; TEMP 36.6; O2SAT 98
[2024-03-12] MEDS: traZODone HCL 50 MG TABLET PO (20:11)
[2024-03-12] MEDS: QUEtiapine Fumarate 50 MG TABLET PO (20:12)
[2024-03-12] MEDS: hydrOXYzine HCL 25 MG TABLET PO (20:13)
[2024-03-13 08:48] VITALS: BP 111/72; PULSE 87; RESP 16; TEMP 36.5; O2SAT 100
[2024-03-13] MEDS: Folic Acid 1 MG TABLET PO (08:51)
[2024-03-13] MEDS: Cariprazine HCl 3 MG CAPSULE PO (08:51)
[2024-03-13] MEDS: Thiamine HCL 100 MG TABLET PO (08:51)
[2024-03-13] MEDS: LORazepam 0.5 MG TABLET PO ×2 (09:03→14:37)
--- NOTE | 2024-03-13 09:07 | P.PNPSI_ITS ---
Subjective Subjective Date of Service: 03/13/24 Reason For Visit: SI Subjective Notes: Conditional Voluntary Interim History: Reviewed with Dr. Atkins. Active on unit. social with peers. Attending groups. Patient reports feeling better today; pt stated, I'm feeling a lot better after talking to the motor coach operator. I'm trying to be more social and positive. I'm trying to be in the moment . Pt reports she is no longer feeling suicidal. pt stated, those feelings went away this morning. I plan on staying with my because I care for him . pt denies SI/HI/VH/AH. She reports sleeping well last night. Scheduled Ativan decreased to 1mg PO bedtime. Continue CIWA. Medication Compliance: Yes Side effects from medications: No Attending Groups: Yes Review of Systems Constitutional: Reports as per HPI Eyes: Reports as per HPI Reports as per HPI Cardiovascular: Reports as per HPI Respiratory: Reports as per HPI Gastrointestinal: Reports as per HPI Musculoskeletal: Reports as per HPI Skin/Breast: Reports as per HPI Reports as per HPI Psychiatric: Reports as per HPI Endocrine: Reports as per HPI Hematologic/Lymphatic: Reports as per HPI Allergic/Immunologic: Reports as per HPI Mental Status Exam Mental Status Exam Narrative: Pt is alert and oriented; behavior is cooperative and calm; dressed in hospital attire; mood is described as better ; eye contact appropriate; Speech is normal rate, volume and not pressured; organized, future oriented; denies SI/HI/VH/AH. Diagnostics Vital Signs (24Hr): Vital Signs - 24 hr 03/12/24 20:00 03/13/24 08:48 Temperature 97.9 F 97.7 F Pulse Rate 81 87 Respiratory Rate 14 16 Blood Pressure 135/86 111/72 Pulse Oximetry 98 100 Oxygen Delivery Method Room Air Room Air BMI result Body Mass Index 22.9 Labs 03/11/24 09:09 03/11/24 09:09 Labs: Laboratory Results - last 48 hr 03/11/24 03/11/24 03/11/24 09:08 09:09 09:09 WBC 4.0 L RBC 3.74 L Hgb 13.6 Hct 39.3 MCV 105.1 H MCH 36.4 H MCHC 34.6 RDW 11.9 Plt Count 322 MPV 8.9 L Immature Gran % (Auto) 0.0 Neut % (Auto) 58.5 Lymph % (Auto) 29.4 Taylor % (Auto) 8.6 Eos % (Auto) 3.0 Baso % (Auto) 0.5 Lymph # (Auto) 1.2 Taylor # (Auto) 0.3 Eos # (Auto) 0.1 Baso # (Auto) 0.0 Abs Immat Gran (auto) 0.00 Absolute Neuts (auto) 2.3 Absolute Nucleated RBC 0.000 Nucleated RBC % (auto) 0.0 Sodium 139 139 Potassium 3.8 Chloride Carbon Dioxide Anion Gap BUN Creatinine Estim Creat Clear Calc Estimated GFR Random Glucose Fasting Glucose Calcium Total Bilirubin Direct Bilirubin AST ALT Alkaline Phosphatase Ammonia Total Protein Albumin Triglycerides Cholesterol LDL Cholesterol, Calc HDL Cholesterol Vitamin B12 521 Folate > 20.0 TSH Hepatitis A IgM Ab Nonreactive Hep Bs Antigen Negative Hep Bs Antibody REACTIVE Hep B Core Total Ab Nonreactive Hepatitis C Ab (EIA) Nonreactive 03/11/24 03/11/24 03/11/24 09:09 09:09 09:09 WBC RBC Hgb Hct MCV MCH MCHC RDW Plt Count MPV Immature Gran % (Auto) Neut % (Auto) Lymph % (Auto) Taylor % (Auto) Eos % (Auto) Baso % (Auto) Lymph # (Auto) Taylor # (Auto) Eos # (Auto) Baso # (Auto) Abs Immat Gran (auto) Absolute Neuts (auto) Absolute Nucleated RBC Nucleated RBC % (auto) Sodium Potassium 3.8 Chloride 105 104 Carbon Dioxide 25 26 Anion Gap 13 BUN Creatinine Estim Creat Clear Calc Estimated GFR Random Glucose Fasting Glucose Calcium Total Bilirubin Direct Bilirubin AST ALT Alkaline Phosphatase Ammonia Total Protein Albumin Triglycerides Cholesterol LDL Cholesterol, Calc HDL Cholesterol Vitamin B12 Folate TSH Hepatitis A IgM Ab Hep Bs Antigen Hep Bs Antibody Hep B Core Total Ab Hepatitis C Ab (EIA) 03/11/24 03/11/24 03/11/24 09:09 09:09 09:09 WBC RBC Hgb Hct MCV MCH MCHC RDW Plt Count MPV Immature Gran % (Auto) Neut % (Auto) Lymph % (Auto) Taylor % (Auto) Eos % (Auto) Baso % (Auto) Lymph # (Auto) Taylor # (Auto) Eos # (Auto) Baso # (Auto) Abs Immat Gran (auto) Absolute Neuts (auto) Absolute Nucleated RBC Nucleated RBC % (auto) Sodium Potassium Chloride Carbon Dioxide Anion Gap 13 BUN 9 10 Creatinine 0.87 0.86 Estim Creat Clear Calc 71.7 Estimated GFR Random Glucose Fasting Glucose Calcium Total Bilirubin Direct Bilirubin AST ALT Alkaline Phosphatase Ammonia Total Protein Albumin Triglycerides Cholesterol LDL Cholesterol, Calc HDL Cholesterol Vitamin B12 Folate TSH Hepatitis A IgM Ab Hep Bs Antigen Hep Bs Antibody Hep B Core Total Ab Hepatitis C Ab (EIA) 03/11/24 03/11/24 03/11/24 09:09 09:09 09:09 WBC RBC Hgb Hct MCV MCH MCHC RDW Plt Count MPV Immature Gran % (Auto) Neut % (Auto) Lymph % (Auto) Taylor % (Auto) Eos % (Auto) Baso % (Auto) Lymph # (Auto) Taylor # (Auto) Eos # (Auto) Baso # (Auto) Abs Immat Gran (auto) Absolute Neuts (auto) Absolute Nucleated RBC Nucleated RBC % (auto) Sodium Potassium Chloride Carbon Dioxide Anion Gap BUN Creatinine Estim Creat Clear Calc 72.6 Estimated GFR > 60 > 60 Random Glucose 96 Fasting Glucose 97 Calcium 9.8 9.7 Total Bilirubin 0.4 Direct Bilirubin AST ALT Alkaline Phosphatase Ammonia Total Protein Albumin Triglycerides Cholesterol LDL Cholesterol, Calc HDL Cholesterol Vitamin B12 Folate TSH Hepatitis A IgM Ab Hep Bs Antigen Hep Bs Antibody Hep B Core Total Ab Hepatitis C Ab (EIA) 03/11/24 03/11/24 03/11/24 09:09 09:09 09:09 WBC RBC Hgb Hct MCV MCH MCHC RDW Plt Count MPV Immature Gran % (Auto) Neut % (Auto) Lymph % (Auto) Taylor % (Auto) Eos % (Auto) Baso % (Auto) Lymph # (Auto) Taylor # (Auto) Eos # (Auto) Baso # (Auto) Abs Immat Gran (auto) Absolute Neuts (auto) Absolute Nucleated RBC Nucleated RBC % (auto) Sodium Potassium Chloride Carbon Dioxide Anion Gap BUN Creatinine Estim Creat Clear Calc Estimated GFR Random Glucose Fasting Glucose Calcium Total Bilirubin 0.4 Direct Bilirubin 0.2 AST 74 H 72 H ALT 59 H 57 H Alkaline Phosphatase 99 Ammonia Total Protein Albumin Triglycerides Cholesterol LDL Cholesterol, Calc HDL Cholesterol Vitamin B12 Folate TSH Hepatitis A IgM Ab Hep Bs Antigen Hep Bs Antibody Hep B Core Total Ab Hepatitis C Ab (EIA) 03/11/24 03/11/24 03/11/24 09:09 09:09 09:09 WBC RBC Hgb Hct MCV MCH MCHC RDW Plt Count MPV Immature Gran % (Auto) Neut % (Auto) Lymph % (Auto) Taylor % (Auto) Eos % (Auto) Baso % (Auto) Lymph # (Auto) Taylor # (Auto) Eos # (Auto) Baso # (Auto) Abs Immat Gran (auto) Absolute Neuts (auto) Absolute Nucleated RBC Nucleated RBC % (auto) Sodium Potassium Chloride Carbon Dioxide Anion Gap BUN Creatinine Estim Creat Clear Calc Estimated GFR Random Glucose Fasting Glucose Calcium Total Bilirubin Direct Bilirubin AST ALT Alkaline Phosphatase 99 Ammonia Total Protein 7.3 7.3 Albumin 4.5 4.5 Triglycerides 165 H Cholesterol 200 H LDL Cholesterol, Calc 85 HDL Cholesterol 82 Vitamin B12 Folate TSH 1.24 Hepatitis A IgM Ab Hep Bs Antigen Hep Bs Antibody Hep B Core Total Ab Hepatitis C Ab (EIA) 03/11/24 10:46 WBC RBC Hgb Hct MCV MCH MCHC RDW Plt Count MPV Immature Gran % (Auto) Neut % (Auto) Lymph % (Auto) Taylor % (Auto) Eos % (Auto) Baso % (Auto) Lymph # (Auto) Taylor # (Auto) Eos # (Auto) Baso # (Auto) Abs Immat Gran (auto) Absolute Neuts (auto) Absolute Nucleated RBC Nucleated RBC % (auto) Sodium Potassium Chloride Carbon Dioxide Anion Gap BUN Creatinine Estim Creat Clear Calc Estimated GFR Random Glucose Fasting Glucose Calcium Total Bilirubin Direct Bilirubin AST ALT Alkaline Phosphatase Ammonia 24 Total Protein Albumin Triglycerides Cholesterol LDL Cholesterol, Calc HDL Cholesterol Vitamin B12 Folate TSH Hepatitis A IgM Ab Hep Bs Antigen Hep Bs Antibody Hep B Core Total Ab Hepatitis C Ab (EIA) Medications Medications Current Medications Acetaminophen (Acetaminophen 325 Mg Tablet) 650 mg PO Q6H PRN PRN Reason: Headache/Pain Mild Scale (1-3) Last Admin: 03/12/24 16:37 Dose: 650 mg Al Hydroxide/Mg Hydroxide (Magnesium Hydrox/Alum Hydrox 30 Ml Oral.Susp) 30 ml PO Q6H PRN PRN Reason: Heartburn/Nausea Cariprazine (Cariprazine Hcl 3 Mg Capsule) 3 mg PO DAILY [facility] Last Admin: 03/13/24 08:51 Dose: 3 mg Folic Acid (Folic Acid 1 Mg Tablet) 1 mg PO DAILY [facility] Last Admin: 03/13/24 08:51 Dose: 1 mg Hydroxyzine HCl (Hydroxyzine Hcl 25 Mg Tablet) 25 mg PO Q6H PRN PRN Reason: Anxiety Last Admin: 03/12/24 20:13 Dose: 25 mg Lorazepam (Lorazepam 1 Mg Tablet) 1 mg PO Q4H PRN PRN Reason: CIWA 6-12 Last Admin: 03/12/24 20:13 Dose: 1 mg Lorazepam (Lorazepam 1 Mg Tablet) 2 mg PO Q4H PRN PRN Reason: CIWA 13 and above Lorazepam (Lorazepam 0.5 Mg Tablet) 0.5 mg PO DAILY@0800,1500 [facility] Last Admin: 03/13/24 09:03 Dose: 0.5 mg Lorazepam (Lorazepam 1 Mg Tablet) 1 mg PO BEDTIME [facility] Last Admin: 03/12/24 20:12 Dose: 1 mg Magnesium Hydroxide (Milk Of Magnesia 30 Ml Oral.Susp) 30 ml PO DAILY PRN PRN Reason: Constipation Nicotine (Nicotine 14 Mg Patch.Td24) 14 mg TRANSDERMA DAILY [facility] Nicotine Polacrilex (Nicotine Polacrilex 2 Mg Gum) 4 mg BUCCAL Q2H PRN PRN Reason: Nicotine Cravings Ondansetron HCl (Ondansetron Odt 8 Mg Tab.Rapdis) 8 mg TRANSLINGU Q8H PRN PRN Reason: Nausea and Vomiting Last Admin: 03/12/24 17:52 Dose: 8 mg Quetiapine Fumarate (Quetiapine Fumarate 50 Mg Tablet) 50 mg PO BEDTIME [facility] Last Admin: 03/12/24 20:12 Dose: 50 mg Quetiapine Fumarate (Quetiapine Fumarate 25 Mg Tablet) 25 mg PO DAILY PRN PRN Reason: Anxiety Thiamine HCl (Thiamine Hcl 100 Mg Tablet) 100 mg PO DAILY [facility] Last Admin: 03/13/24 08:51 Dose: 100 mg Trazodone HCl (Trazodone Hcl 50 Mg Tablet) 50 mg PO BEDTIME MRX1 PRN PRN Reason: Insomnia Last Admin: 03/12/24 20:11 Dose: 50 mg Allergies Allergies Allergy/AdvReac Type Severity Reaction Status Date / Time Unable to Assess Allergy Verified 03/09/24 23:46 Assessment & Plan Assessment & Plan (1) MDD (major depressive disorder), recurrent episode: Status: Acute Code(s): F33.9 - Major depressive disorder, recurrent, unspecified (2) PTSD (post-traumatic stress disorder): Status: Acute Code(s): F43.10 - Post-traumatic stress disorder, unspecified (3) Alcohol use disorder: Status: Acute Code(s): F10.90 - Alcohol use, unspecified, uncomplicated (4) Cocaine use disorder: Status: Acute Code(s): F14.10 - Cocaine abuse, uncomplicated Plan Patient is a 39-year-old female with history of MDD, PTSD, alcohol use disorder and cocaine use disorder who [place] [facility] [place] due to making suicidal statements while intoxicated and under the influence of substances secondary to increased life stressors. Plan: CV 15 minute safety checks CIWA Start: Ativan 1mg PO TID Seroquel 50mg PO bedtime Seroquel 25mg PO PRN Folic acid 1mg PO daily Thiamine 100mg PO daily re-draw Labs for tomorrow Obtain collateral Referral to outpatient psychiatric providers. Discharge planning 03/11: Keeping to self. In bed most of shift. Guarded. Continued on CIWA. Patient reports feeling depressed; she reports suicidal ideation with no plan. Patient stated, everything in my life is changing. I have a problem that everyone is now aware of and now I am here . Patient reports she is having an affair but no one knows; patient stated, I am sure my and I are going to go through a divorce at some point . Patient denies HI/VH/AH. Start: Vraylar 3mg PO daily 03/12: Active on unit but keeping to self. Attending groups. Patient presents less guarded and more organized today. She continues to report increased depression. Patient future oriented, discussed ideas of how to improve her life. Patient stated, I want to find a job that makes me happy and that helps people or animals. I want to move out of [place] and be closer with my siblings . Patient expressed interest in talking to addiction medicine regarding a motor coach operator and possible treatment options for her alcohol use. Patient continues concern regarding anyone finding out about her marital affair. Patient denies any side effects from starting Vraylar. Scheduled Ativan decreased to 0.5mg at 0800,1500. And 1mg at bedtime. Continue CIWA. Addiction medicine consult placed. 03/13: Active on unit. social with peers. Attending groups. Patient reports feeling better today; pt stated, I'm feeling a lot better after talking to the motor coach operator. I'm trying to be more social and positive. I'm trying to be in the moment . Pt reports she is no longer feeling suicidal. pt stated, those feelings went away this morning. I plan on staying with my because I care for him . pt denies SI/HI/VH/AH. She reports sleeping well last night. Scheduled Ativan decreased to 1mg PO bedtime. Continue CIWA. Patient educated on: diagnosis, medication risk/benefits and therapeutic strategies Reason for continued inpatient stay Substantial Risk for: med/psych decompensation Time Spent With Patient Time: Total time managing care of this patient today _20___ minutes.
[2024-03-13] MEDS: Nicotine 14 MG PATCH.TD24 TRANSDERMA (12:21)
--- NOTE | 2024-03-13 14:22 | MHC.RECOVRN ---
AUDIT-C Brief Intervention Pt had positive screen for unhealthy alcohol use on admission, subsequently met with t/w to discuss alcohol use and recovery supports/options. This magnetic tape typewriter operator met with patient to discuss current alcohol use and concerns related to increased risk of alcohol related problems.? Pt reports 1+ sleeves of Mcgillicuddy's Mint, 4 4 packs of NUTRL Watermelon, vodka mixed with gatorade and occaisonally other mixed drinks x 1 year. Prior to that was drinking less. Discussed how alcohol use has impacted health, including negative impact on mental health. Pt reports she began drinking at age 21 and has been drinking almost daily since then. Pt denies time in recovery, denies tx for AUD. Pt reports she has attempted to reduce the amount she drinks in the past by herself at home. Pts goal is to reduce the amount she drinks, would like to eventually be a social drinker. Pt reports family hx AUD, reports also has AUD. Discussed risk reduction strategies including drinking below the recommended limit. Provided pt with written resources including information on inpatient and outpatient treatment, [facility], harm reduction, and recovery coaching. Pt interested in naltrexone initiation and following up with the [facility]. Pt plans to go to uncle's house upon discharge as uncle has been in recovery for many years and is supportive. Pt provided with t/w contact information if questions or concerns arise. Denies other questions or concerns at this time.? Discussed with Larissa Salmeron APRN.
[2024-03-13] MEDS: Naltrexone HCl 50 MG TABLET 25 MG PO (16:41)
[2024-03-13 20:00] VITALS: BP 129/76; PULSE 86; RESP 18; TEMP 36.8; O2SAT 100
[2024-03-13] MEDS: hydrOXYzine HCL 25 MG TABLET PO (21:34)
[2024-03-13] MEDS: traZODone HCL 50 MG TABLET PO (21:34)
[2024-03-13] MEDS: QUEtiapine Fumarate 50 MG TABLET PO (21:35)
[2024-03-13] MEDS: LORazepam 1 MG TABLET PO (21:35)
[2024-03-14 07:52] VITALS: BP 119/73; PULSE 83; RESP 14; TEMP 36.4; O2SAT 100
[2024-03-14] MEDS: Cariprazine HCl 3 MG CAPSULE PO (08:55)
[2024-03-14] MEDS: LORazepam 0.5 MG TABLET PO (08:55)
[2024-03-14] MEDS: Thiamine HCL 100 MG TABLET PO (08:55)
[2024-03-14] MEDS: Folic Acid 1 MG TABLET PO (08:55)
[2024-03-14] MEDS: Naltrexone HCl 50 MG TABLET 25 MG PO (08:57)
--- NOTE | 2024-03-14 10:09 | HO.PSYCHPN ---
Subjective Subjective Date of Service: 03/14/24 Reason For Visit: SI Subjective Notes: Conditional Voluntary Interim History: Reviewed with Dr. Atkins. Active on unit. social with peers. Attending groups. Patient reports feeling good today; denies SI/HI/VH/AH. She reports sleeping well. pt denies withdrawal symptoms. DC CIWA. Continue with Ativan taper. Medication Compliance: Yes Side effects from medications: No Attending Groups: Yes Review of Systems Constitutional: Reports as per HPI Eyes: Reports as per HPI Reports as per HPI Cardiovascular: Reports as per HPI Respiratory: Reports as per HPI Gastrointestinal: Reports as per HPI Musculoskeletal: Reports as per HPI Skin/Breast: Reports as per HPI Reports as per HPI Psychiatric: Reports as per HPI Endocrine: Reports as per HPI Hematologic/Lymphatic: Reports as per HPI Allergic/Immunologic: Reports as per HPI Mental Status Exam Mental Status Exam Narrative: Pt is alert and oriented; behavior is cooperative and calm; dressed in hospital attire; mood is described as good ; eye contact appropriate; Speech is normal rate, volume and not pressured; organized, future oriented; denies SI/HI/VH/AH. Diagnostics Vital Signs (24Hr): Vital Signs - 24 hr 03/13/24 20:00 03/14/24 07:52 Temperature 98.2 F 97.5 F Pulse Rate 86 83 Respiratory Rate 18 14 Blood Pressure 129/76 119/73 Pulse Oximetry 100 100 Oxygen Delivery Method Room Air Room Air BMI result Body Mass Index 22.9 Labs 03/11/24 09:09 03/11/24 09:09 Medications Medications Current Medications Acetaminophen (Acetaminophen 325 Mg Tablet) 650 mg PO Q6H PRN PRN Reason: Headache/Pain Mild Scale (1-3) Last Admin: 03/12/24 16:37 Dose: 650 mg Al Hydroxide/Mg Hydroxide (Magnesium Hydrox/Alum Hydrox 30 Ml Oral.Susp) 30 ml PO Q6H PRN PRN Reason: Heartburn/Nausea Cariprazine (Cariprazine Hcl 3 Mg Capsule) 3 mg PO DAILY [facility] Last Admin: 03/14/24 08:55 Dose: 3 mg Folic Acid (Folic Acid 1 Mg Tablet) 1 mg PO DAILY [facility] Last Admin: 03/14/24 08:55 Dose: 1 mg Hydroxyzine HCl (Hydroxyzine Hcl 25 Mg Tablet) 25 mg PO Q6H PRN PRN Reason: Anxiety Last Admin: 03/13/24 21:34 Dose: 25 mg Lorazepam (Lorazepam 1 Mg Tablet) 1 mg PO Q4H PRN PRN Reason: CIWA 6-12 Last Admin: 03/12/24 20:13 Dose: 1 mg Lorazepam (Lorazepam 1 Mg Tablet) 2 mg PO Q4H PRN PRN Reason: CIWA 13 and above Lorazepam (Lorazepam 1 Mg Tablet) 1 mg PO BEDTIME [facility] Last Admin: 03/13/24 21:35 Dose: 1 mg Lorazepam (Lorazepam 0.5 Mg Tablet) 0.5 mg PO DAILY [facility] Last Admin: 03/14/24 08:55 Dose: 0.5 mg Magnesium Hydroxide (Milk Of Magnesia 30 Ml Oral.Susp) 30 ml PO DAILY PRN PRN Reason: Constipation Naltrexone HCl (Naltrexone Hcl 50 Mg Tablet) 25 mg PO DAILY [facility] Last Admin: 03/14/24 08:57 Dose: 25 mg Nicotine (Nicotine 14 Mg Patch.Td24) 14 mg TRANSDERMA DAILY [facility] Last Admin: 03/14/24 08:57 Dose: Not Given Nicotine Polacrilex (Nicotine Polacrilex 2 Mg Gum) 4 mg BUCCAL Q2H PRN PRN Reason: Nicotine Cravings Ondansetron HCl (Ondansetron Odt 8 Mg Tab.Rapdis) 8 mg TRANSLINGU Q8H PRN PRN Reason: Nausea and Vomiting Last Admin: 03/12/24 17:52 Dose: 8 mg Quetiapine Fumarate (Quetiapine Fumarate 50 Mg Tablet) 50 mg PO BEDTIME [facility] Last Admin: 03/13/24 21:35 Dose: 50 mg Quetiapine Fumarate (Quetiapine Fumarate 25 Mg Tablet) 25 mg PO DAILY PRN PRN Reason: Anxiety Thiamine HCl (Thiamine Hcl 100 Mg Tablet) 100 mg PO DAILY [facility] Last Admin: 03/14/24 08:55 Dose: 100 mg Trazodone HCl (Trazodone Hcl 50 Mg Tablet) 50 mg PO BEDTIME MRX1 PRN PRN Reason: Insomnia Last Admin: 03/13/24 21:34 Dose: 50 mg Allergies Allergies Allergy/AdvReac Type Severity Reaction Status Date / Time Unable to Assess Allergy Verified 03/09/24 23:46 Assessment & Plan Assessment & Plan (1) MDD (major depressive disorder), recurrent episode: Status: Acute Code(s): F33.9 - Major depressive disorder, recurrent, unspecified (2) PTSD (post-traumatic stress disorder): Status: Acute Code(s): F43.10 - Post-traumatic stress disorder, unspecified (3) Alcohol use disorder: Status: Acute Code(s): F10.90 - Alcohol use, unspecified, uncomplicated (4) Cocaine use disorder: Status: Acute Code(s): F14.10 - Cocaine abuse, uncomplicated Plan Patient is a 39-year-old female with history of MDD, PTSD, alcohol use disorder and cocaine use disorder who presented to [facility] via ambulance due to making suicidal statements while intoxicated and under the influence of substances secondary to increased life stressors. Plan: CV 15 minute safety checks CIWA Start: Ativan 1mg PO TID Seroquel 50mg PO bedtime Seroquel 25mg PO PRN Folic acid 1mg PO daily Thiamine 100mg PO daily re-draw Labs for tomorrow Obtain collateral Referral to outpatient psychiatric providers. Discharge planning 03/11: Keeping to self. In bed most of shift. Guarded. Continued on CIWA. Patient reports feeling depressed; she reports suicidal ideation with no plan. Patient stated, everything in my life is changing. I have a problem that everyone is now aware of and now I am here . Patient reports she is having an affair but no one knows; patient stated, I am sure my and I are going to go through a divorce at some point . Patient denies HI/VH/AH. Start: Vraylar 3mg PO daily 03/12: Active on unit but keeping to self. Attending groups. Patient presents less guarded and more organized today. She continues to report increased depression. Patient future oriented, discussed ideas of how to improve her life. Patient stated, I want to find a job that makes me happy and that helps people or animals. I want to move out of [place] and be closer with my siblings . Patient expressed interest in talking to addiction medicine regarding a control and recovery special tactics and possible treatment options for her alcohol use. Patient continues concern regarding anyone finding out about her marital affair. Patient denies any side effects from starting Vraylar. Scheduled Ativan decreased to 0.5mg at 0800,1500. And 1mg at bedtime. Continue CIWA. Addiction medicine consult placed. 03/13: Active on unit. social with peers. Attending groups. Patient reports feeling better today; pt stated, I'm feeling a lot better after talking to the control and recovery special tactics. I'm trying to be more social and positive. I'm trying to be in the moment . Pt reports she is no longer feeling suicidal. pt stated, those feelings went away this morning. I plan on staying with my because I care for him . pt denies SI/HI/VH/AH. She reports sleeping well last night. Scheduled Ativan decreased to 1mg PO bedtime. Continue CIWA. 03/14: Active on unit. social with peers. Attending groups. Patient reports feeling good today; denies SI/HI/VH/AH. She reports sleeping well. pt denies withdrawal symptoms. DC CIWA. Continue with Ativan taper. Patient educated on: diagnosis, medication risk/benefits and therapeutic strategies Reason for continued inpatient stay Substantial Risk for: med/psych decompensation Time Spent With Patient Time: Total time managing care of this patient today _20___ minutes.
[2024-03-14 20:00] VITALS: BP 150/96; PULSE 99; RESP 16; TEMP 36.3; O2SAT 100
[2024-03-14] MEDS: QUEtiapine Fumarate 50 MG TABLET PO (20:36)
[2024-03-14] MEDS: traZODone HCL 50 MG TABLET PO (20:36)
[2024-03-14] MEDS: hydrOXYzine HCL 25 MG TABLET PO (20:36)
[2024-03-14] MEDS: LORazepam 1 MG TABLET PO (20:37)
[2024-03-15 07:40] VITALS: BP 118/66; PULSE 88; RESP 14; TEMP 36.4; O2SAT 100
--- NOTE | 2024-03-15 09:00 | HO.PSYCHPN ---
Subjective Subjective Date of Service: 03/15/24 Reason For Visit: SI Subjective Notes: Conditional Voluntary Interim History: Reviewed with Dr. Atkins. Active on unit. social with peers. Attending groups. Patient reports feeling good today; patient stated, every day I see myself improving. I don't want to . denies SI/HI/VH/AH. Patient is hoping for follow-up psychiatric care. Continue with Ativan taper. Plan for discharge early this week. Medication Compliance: Yes Side effects from medications: No Attending Groups: Yes Review of Systems Constitutional: Reports as per HPI Eyes: Reports as per HPI Reports as per HPI Cardiovascular: Reports as per HPI Respiratory: Reports as per HPI Gastrointestinal: Reports as per HPI Musculoskeletal: Reports as per HPI Skin/Breast: Reports as per HPI Reports as per HPI Psychiatric: Reports as per HPI Endocrine: Reports as per HPI Hematologic/Lymphatic: Reports as per HPI Allergic/Immunologic: Reports as per HPI Mental Status Exam Mental Status Exam Narrative: Pt is alert and oriented; behavior is cooperative and calm; dressed in hospital attire; mood is described as good ; eye contact appropriate; Speech is normal rate, volume and not pressured; organized, future oriented; denies SI/HI/VH/AH. Diagnostics Vital Signs (24Hr): Vital Signs - 24 hr 03/14/24 20:00 03/15/24 07:40 Temperature 97.4 F 97.5 F Pulse Rate 99 88 Respiratory Rate 16 14 Blood Pressure 150/96 H 118/66 Pulse Oximetry 100 100 Oxygen Delivery Method Room Air Room Air BMI result Body Mass Index 22.9 Labs 03/11/24 09:09 03/11/24 09:09 Medications Medications Current Medications Acetaminophen (Acetaminophen 325 Mg Tablet) 650 mg PO Q6H PRN PRN Reason: Headache/Pain Mild Scale (1-3) Last Admin: 03/12/24 16:37 Dose: 650 mg Al Hydroxide/Mg Hydroxide (Magnesium Hydrox/Alum Hydrox 30 Ml Oral.Susp) 30 ml PO Q6H PRN PRN Reason: Heartburn/Nausea Cariprazine (Cariprazine Hcl 3 Mg Capsule) 3 mg PO DAILY [facility] Last Admin: 03/14/24 08:55 Dose: 3 mg Folic Acid (Folic Acid 1 Mg Tablet) 1 mg PO DAILY [facility] Last Admin: 03/14/24 08:55 Dose: 1 mg Hydroxyzine HCl (Hydroxyzine Hcl 25 Mg Tablet) 25 mg PO Q6H PRN PRN Reason: Anxiety Last Admin: 03/14/24 20:36 Dose: 25 mg Lorazepam (Lorazepam 1 Mg Tablet) 1 mg PO BEDTIME [facility]ITRI Last Admin: 03/14/24 20:37 Dose: 1 mg Magnesium Hydroxide (Milk Of Magnesia 30 Ml Oral.Susp) 30 ml PO DAILY PRN PRN Reason: Constipation Naltrexone HCl (Naltrexone Hcl 50 Mg Tablet) 25 mg PO DAILY [facility] Last Admin: 03/14/24 08:57 Dose: 25 mg Nicotine (Nicotine 14 Mg Patch.Td24) 14 mg TRANSDERMA DAILY [facility] Last Admin: 03/14/24 08:57 Dose: Not Given Nicotine Polacrilex (Nicotine Polacrilex 2 Mg Gum) 4 mg BUCCAL Q2H PRN PRN Reason: Nicotine Cravings Ondansetron HCl (Ondansetron Odt 8 Mg Tab.Rapdis) 8 mg TRANSLINGU Q8H PRN PRN Reason: Nausea and Vomiting Last Admin: 03/12/24 17:52 Dose: 8 mg Quetiapine Fumarate (Quetiapine Fumarate 50 Mg Tablet) 50 mg PO BEDTIME [facility] Last Admin: 03/14/24 20:36 Dose: 50 mg Thiamine HCl (Thiamine Hcl 100 Mg Tablet) 100 mg PO DAILY [facility] Last Admin: 03/14/24 08:55 Dose: 100 mg Trazodone HCl (Trazodone Hcl 50 Mg Tablet) 50 mg PO BEDTIME MRX1 PRN PRN Reason: Insomnia Last Admin: 03/14/24 20:36 Dose: 50 mg Allergies Allergies Allergy/AdvReac Type Severity Reaction Status Date / Time Unable to Assess Allergy Verified 03/09/24 23:46 Assessment & Plan Assessment & Plan (1) MDD (major depressive disorder), recurrent episode: Status: Acute Code(s): F33.9 - Major depressive disorder, recurrent, unspecified (2) PTSD (post-traumatic stress disorder): Status: Acute Code(s): F43.10 - Post-traumatic stress disorder, unspecified (3) Alcohol use disorder: Status: Acute Code(s): F10.90 - Alcohol use, unspecified, uncomplicated (4) Cocaine use disorder: Status: Acute Code(s): F14.10 - Cocaine abuse, uncomplicated Plan Patient is a 39-year-old female with history of MDD, PTSD, alcohol use disorder and cocaine use disorder who presented to [facility] via ambulance due to making suicidal statements while intoxicated and under the influence of substances secondary to increased life stressors. Plan: CV 15 minute safety checks CIWA Start: Ativan 1mg PO TID Seroquel 50mg PO bedtime Seroquel 25mg PO PRN Folic acid 1mg PO daily Thiamine 100mg PO daily re-draw Labs for tomorrow Obtain collateral Referral to outpatient psychiatric providers. Discharge planning 03/11: Keeping to self. In bed most of shift. Guarded. Continued on CIWA. Patient reports feeling depressed; she reports suicidal ideation with no plan. Patient stated, everything in my life is changing. I have a problem that everyone is now aware of and now I am here . Patient reports she is having an affair but no one knows; patient stated, I am sure my and I are going to go through a divorce at some point . Patient denies HI/VH/AH. Start: Vraylar 3mg PO daily 03/12: Active on unit but keeping to self. Attending groups. Patient presents less guarded and more organized today. She continues to report increased depression. Patient future oriented, discussed ideas of how to improve her life. Patient stated, I want to find a job that makes me happy and that helps people or animals. I want to move out of [place] and be closer with my siblings . Patient expressed interest in talking to addiction medicine regarding a elementary instructional coach and possible treatment options for her alcohol use. Patient continues concern regarding anyone finding out about her marital affair. Patient denies any side effects from starting Vraylar. Scheduled Ativan decreased to 0.5mg at 0800,1500. And 1mg at bedtime. Continue CIWA. Addiction medicine consult placed. 03/13: Active on unit. social with peers. Attending groups. Patient reports feeling better today; pt stated, I'm feeling a lot better after talking to the elementary instructional coach. I'm trying to be more social and positive. I'm trying to be in the moment . Pt reports she is no longer feeling suicidal. pt stated, those feelings went away this morning. I plan on staying with my because I care for him . pt denies SI/HI/VH/AH. She reports sleeping well last night. Scheduled Ativan decreased to 1mg PO bedtime. Continue CIWA. 03/14: Active on unit. social with peers. Attending groups. Patient reports feeling good today; denies SI/HI/VH/AH. She reports sleeping well. pt denies withdrawal symptoms. DC CIWA. Continue with Ativan taper. 03/15: Patient reports feeling good today; patient stated, every day I see myself improving. I don't want to . denies SI/HI/VH/AH. Patient is hoping for follow-up psychiatric care. Continue with Ativan taper. Plan for discharge early this week. Patient educated on: diagnosis, medication risk/benefits, substance abuse and therapeutic strategies Reason for continued inpatient stay Substantial Risk for: med/psych decompensation Time Spent With Patient Time: Total time managing care of this patient today _20___ minutes.
[2024-03-15] MEDS: Cariprazine HCl 3 MG CAPSULE PO (09:03)
[2024-03-15] MEDS: Naltrexone HCl 50 MG TABLET 25 MG PO (09:03)
[2024-03-15] MEDS: Thiamine HCL 100 MG TABLET PO (09:03)
[2024-03-15] MEDS: Folic Acid 1 MG TABLET PO (09:03)
[2024-03-15 19:15] VITALS: BP 155/99; PULSE 80; RESP 16; TEMP 36.6; O2SAT 100
[2024-03-15] MEDS: LORazepam 0.5 MG TABLET PO (20:37)
[2024-03-15] MEDS: QUEtiapine Fumarate 50 MG TABLET PO (20:37)
[2024-03-15] MEDS: hydrOXYzine HCL 25 MG TABLET PO (20:37)
[2024-03-15] MEDS: traZODone HCL 50 MG TABLET PO (20:37)
[2024-03-15] MEDS: Acetaminophen 325 MG TABLET 650 MG PO (20:38)
[2024-03-15 21:36] VITALS: BP 150/96; RESP 18
[2024-03-16 07:48] VITALS: BP 129/61; PULSE 80; RESP 14; TEMP 36.4; O2SAT 100
[2024-03-16] MEDS: Thiamine HCL 100 MG TABLET PO (08:28)
[2024-03-16] MEDS: Cariprazine HCl 3 MG CAPSULE PO (08:28)
[2024-03-16] MEDS: Naltrexone HCl 50 MG TABLET PO (08:28)
[2024-03-16] MEDS: Folic Acid 1 MG TABLET PO (08:28)
--- NOTE | 2024-03-16 16:04 | P.PNPSI_ITS ---
Subjective Subjective Date of Service: 03/16/24 Reason For Visit: SI Mental Status Exam Mental Status Exam Narrative: Pt is alert and oriented; behavior is cooperative and calm; dressed in hospital attire; mood is good full range of affect; eye contact appropriate; Speech is normal rate, volume and not pressured; organized, future oriented; denies SI/HI/VH/AH. no c/o side effects Diagnostics Vital Signs (24Hr): Vital Signs - 24 hr 03/15/24 19:15 03/15/24 21:36 03/16/24 07:48 Temperature 97.8 F 97.5 F Pulse Rate 80 80 Respiratory Rate 16 18 14 Blood Pressure 155/99 H 150/96 H 129/61 Pulse Oximetry 100 100 Oxygen Delivery Method Room Air Room Air BMI result Body Mass Index 22.9 Labs 03/11/24 09:09 03/11/24 09:09 Medications Medications Current Medications Acetaminophen (Acetaminophen 325 Mg Tablet) 650 mg PO Q6H PRN PRN Reason: Headache/Pain Mild Scale (1-3) Last Admin: 03/15/24 20:38 Dose: 650 mg Al Hydroxide/Mg Hydroxide (Magnesium Hydrox/Alum Hydrox 30 Ml Oral.Susp) 30 ml PO Q6H PRN PRN Reason: Heartburn/Nausea Cariprazine (Cariprazine Hcl 3 Mg Capsule) 3 mg PO DAILY [facility] Last Admin: 03/16/24 08:28 Dose: 3 mg Folic Acid (Folic Acid 1 Mg Tablet) 1 mg PO DAILY [facility] Last Admin: 03/16/24 08:28 Dose: 1 mg Hydroxyzine HCl (Hydroxyzine Hcl 25 Mg Tablet) 25 mg PO Q6H PRN PRN Reason: Anxiety Last Admin: 03/15/24 20:37 Dose: 25 mg Lorazepam (Lorazepam 0.5 Mg Tablet) 0.5 mg PO BEDTIME [facility] Last Admin: 03/15/24 20:37 Dose: 0.5 mg Magnesium Hydroxide (Milk Of Magnesia 30 Ml Oral.Susp) 30 ml PO DAILY PRN PRN Reason: Constipation Naltrexone HCl (Naltrexone Hcl 50 Mg Tablet) 50 mg PO DAILY [facility] Last Admin: 03/16/24 08:28 Dose: 50 mg Nicotine (Nicotine 14 Mg Patch.Td24) 14 mg TRANSDERMA DAILY [facility] Last Admin: 03/16/24 09:34 Dose: Not Given Nicotine Polacrilex (Nicotine Polacrilex 2 Mg Gum) 4 mg BUCCAL Q2H PRN PRN Reason: Nicotine Cravings Ondansetron HCl (Ondansetron Odt 8 Mg Tab.Rapdis) 8 mg TRANSLINGU Q8H PRN PRN Reason: Nausea and Vomiting Last Admin: 03/12/24 17:52 Dose: 8 mg Quetiapine Fumarate (Quetiapine Fumarate 50 Mg Tablet) 50 mg PO BEDTIME [facility] Last Admin: 03/15/24 20:37 Dose: 50 mg Thiamine HCl (Thiamine Hcl 100 Mg Tablet) 100 mg PO DAILY [facility] Last Admin: 03/16/24 08:28 Dose: 100 mg Trazodone HCl (Trazodone Hcl 50 Mg Tablet) 50 mg PO BEDTIME MRX1 PRN PRN Reason: Insomnia Last Admin: 03/15/24 20:37 Dose: 50 mg Allergies Allergies Allergy/AdvReac Type Severity Reaction Status Date / Time Unable to Assess Allergy Verified 03/09/24 23:46 Assessment & Plan Assessment & Plan (1) MDD (major depressive disorder), recurrent episode: Status: Acute Code(s): F33.9 - Major depressive disorder, recurrent, unspecified (2) PTSD (post-traumatic stress disorder): Status: Acute Code(s): F43.10 - Post-traumatic stress disorder, unspecified (3) Alcohol use disorder: Status: Acute Code(s): F10.90 - Alcohol use, unspecified, uncomplicated (4) Cocaine use disorder: Status: Acute Code(s): F14.10 - Cocaine abuse, uncomplicated Plan Patient is a 39-year-old female with history of MDD, PTSD, alcohol use disorder and cocaine use disorder who presented to [facility] via ambulance due to making suicidal statements while intoxicated and under the influence of substances secondary to increased life stressors. Plan: CV 15 minute safety checks CIWA Start: Ativan 1mg PO TID Seroquel 50mg PO bedtime Seroquel 25mg PO PRN Folic acid 1mg PO daily Thiamine 100mg PO daily re-draw Labs for tomorrow Obtain collateral Referral to outpatient psychiatric providers. Discharge planning 03/11: Keeping to self. In bed most of shift. Guarded. Continued on CIWA. Patient reports feeling depressed; she reports suicidal ideation with no plan. Patient stated, everything in my life is changing. I have a problem that everyone is now aware of and now I am here . Patient reports she is having an affair but no one knows; patient stated, I am sure my and I are going to go through a divorce at some point . Patient denies HI/VH/AH. Start: Vraylar 3mg PO daily 03/12: Active on unit but keeping to self. Attending groups. Patient presents less guarded and more organized today. She continues to report increased depression. Patient future oriented, discussed ideas of how to improve her life. Patient stated, I want to find a job that makes me happy and that helps people or animals. I want to move out of [place] and be closer with my siblings . Patient expressed interest in talking to addiction medicine regarding a asset recovery specialist and possible treatment options for her alcohol use. Patient continues concern regarding anyone finding out about her marital affair. Patient denies any side effects from starting Vraylar. Scheduled Ativan decreased to 0.5mg at 0800,1500. And 1mg at bedtime. Continue CIWA. Addiction medicine consult placed. 03/13: Active on unit. social with peers. Attending groups. Patient reports feeling better today; pt stated, I'm feeling a lot better after talking to the asset recovery specialist. I'm trying to be more social and positive. I'm trying to be in the moment . Pt reports she is no longer feeling suicidal. pt stated, those feelings went away this morning. I plan on staying with my because I care for him . pt denies SI/HI/VH/AH. She reports sleeping well last night. Scheduled Ativan decreased to 1mg PO bedtime. Continue CIWA. 03/14: Active on unit. social with peers. Attending groups. Patient reports feeling good today; denies SI/HI/VH/AH. She reports sleeping well. pt denies withdrawal symptoms. DC CIWA. Continue with Ativan taper. 03/15: Patient reports feeling good today; patient stated, every day I see myself improving. I don't want to . denies SI/HI/VH/AH. Patient is hoping for follow-up psychiatric care. Continue with Ativan taper. Plan for discharge early this week. 03/16/24 Pt inc stable unclear regarding possible bipolar dx needs education future oriented much dec psychosis Patient educated on: diagnosis and medication risk/benefits Informed Consent: further education needed Reason for continued inpatient stay Substantial Risk for: inability to function and rapid decompensation Time Spent With Patient Time: Total time managing care of this patient today __20__ minutes.
[2024-03-16 20:00] VITALS: BP 146/88; PULSE 93; RESP 16; TEMP 36.6; O2SAT 100
[2024-03-16] MEDS: QUEtiapine Fumarate 50 MG TABLET PO (20:44)
[2024-03-16] MEDS: hydrOXYzine HCL 25 MG TABLET PO (20:44)
[2024-03-16] MEDS: LORazepam 0.5 MG TABLET PO (20:45)
[2024-03-17 07:20] VITALS: BP 167/93; PULSE 87; RESP 12; TEMP 36.4; O2SAT 100
[2024-03-17] MEDS: Naltrexone HCl 50 MG TABLET PO (08:27)
[2024-03-17] MEDS: Cariprazine HCl 3 MG CAPSULE PO (08:28)
[2024-03-17] MEDS: Folic Acid 1 MG TABLET PO (08:28)
[2024-03-17] MEDS: Thiamine HCL 100 MG TABLET PO (08:28)
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
[2024-03-17] MEDS: Naloxone HCl Nasal TAKE HOME 4 MG SPRAY 8 MG NOSTRILALT (11:36)
--- NOTE | 2024-03-17 11:55 | PC.NURSE ---
Patient easily engaged. Reports mood is stable, denies depression or anxiety. States she having some sadness from leaving but excited for myself . Denies SI/HI plan or intent. No reported cravings to use. Narcan taken with patient as ordered by provider. Discharge paperwork reviewed with patient, reports understanding. Medications reviewed with patient, reports understanding. Crisis numbers provided to patient. All belongings taken with patient
== END 2024-03-17 11:25 | disposition home or self-care (01) | DRG 751 ==
LOC: HO.ED 03-10 11:38 → HO.PADLT16 03-10 12:37
PROVIDERS: Emergency Medicine; Admitting Provider Registered Nurse; Emergency Provider Emergency Medicine; Responsible Provider Registered Nurse; Visit Provider Psychiatry & Neurology Psychiatry
DX: F33.9 Major depressive disorder, recurrent, unspecified (principal); R45.851 Suicidal ideations; F43.10 Post-traumatic stress disorder, unspecified; F14.10 Cocaine abuse, uncomplicated; F10.90 Alcohol use, unspecified, uncomplicated; Y90.7 Blood alcohol level of 200-239 mg/100 ml; Z87.891 Personal history of nicotine dependence; Z79.899 Other long term (current) drug therapy
CPT/HCPCS: 36415; 80048; 80053; 80061; 80076; 80143; 80179; 80307; 81003; 81025; 82140; 82607; 82746; 83690; 83735; 84443; 85025; 86704; 86706; 86709; 86803; 87340; 93005; 99285; S9485

== ENCOUNTER → 2024-03-10 12:26 | Outpatient (BNV) | payer OTHER, SELFPAY | PROVIDERS: Admitting Provider Registered Nurse; Emergency Provider Emergency Medicine; Responsible Provider Registered Nurse; Visit Provider Registered Nurse | DX: F33.2 Major depressive disorder, recurrent severe without psychotic features (principal); F14.10 Cocaine abuse, uncomplicated; F43.11 Post-traumatic stress disorder, acute; F10.90 Alcohol use, unspecified, uncomplicated | CPT/HCPCS: 90792; 99231; 99232 ==

== ENCOUNTER → 2024-03-10 12:26 | Outpatient (BNV) | payer OTHER, SELFPAY | PROVIDERS: Admitting Provider Registered Nurse; Emergency Provider Emergency Medicine; Responsible Provider Registered Nurse; Visit Provider Psychiatry & Neurology Psychiatry | DX: F33.2 Major depressive disorder, recurrent severe without psychotic features (principal); F14.10 Cocaine abuse, uncomplicated; F10.90 Alcohol use, unspecified, uncomplicated; F43.11 Post-traumatic stress disorder, acute | CPT/HCPCS: 99231 ==

== ENCOUNTER 2024-03-18 11:05 | Outpatient (AMB) | payer OTHER, SELFPAY ==
--- NOTE | 2024-03-18 11:13 | A.OFFVISCC_ITS ---
Intake Visit Reasons: Intake Allergies Unable to Assess Allergy (Verified 03/09/24 23:46) HPI HPI Intake: Details: Patient presents for intake and continuation of treatment for AUD Was inpatient at recently and seen by sales executive insurance Reviewed all admission notes and labs services set up at discharge -therapist and psychiatric provider therapy 03/25 Discussed additional supports for AUD as patient is new to recovery provided with information on [facility] Medical History (Updated 03/10/24 @ 17:01 by Lauren Abdalla NP) Alcohol use disorder Anxiety and depression Social History Household Members: Spouse Housing: House Do you presently have visiting nurse or other home services: No Patient Tobacco Use Status: Former Tobacco user e-Cigarette/Vaping Use: Currently Using Second Hand Smoke Exposure: Yes Substance Use Type: Crack/Cocaine and Marijuana service: No Sexual orientation: Straight/Heterosexual Review of Systems Const Reports as per HPI and Reports no additional complaints Physical Exam Const General: cooperative, healthy appearing, comfortable, anxious and well groomed Nutritional Appearance: average body habitus Orientation/consciousness: patient oriented x3 Limitations: no limitations Neuro General: patient oriented x3 Assessment & Plan Assessment & Plan (1) Alcohol use disorder: Code(s): F10.90 - Alcohol use, unspecified, uncomplicated Category: Medical Plan: * continue naltrexone * relapse prevention discussion * [facility] information provided * follow up one week
== END 2024-03-18 13:38 | disposition home or self-care (01) ==
PROVIDERS: Visit Provider Nurse Practitioner Psychiatric/Mental Health
DX: F10.90 Alcohol use, unspecified, uncomplicated (principal)
CPT/HCPCS: 99204

== ENCOUNTER → 2024-03-18 11:05 | Outpatient (BNVA) | payer OTHER, SELFPAY | PROVIDERS: Visit Provider Nurse Practitioner Psychiatric/Mental Health ==